=== PATIENT | male | born 1945 | race Caucasian/White ===

== ENCOUNTER 2020-02-02 09:33 | Emergency (ER) | payer MEDICARE ==
[2020-02-02 09:39] VITALS: BP 201/88; PULSE 66; TEMP 97.8
[2020-02-02] MEDS ORDERED: DIPH,PERTUS(ACELL)TETVAC-LF 0.5 ML VIAL IM ONE (09:58)
--- NOTE | 2020-02-02 10:00 | ED ---
General Adult HPI - General Chief complaint: Fall Stated complaint: Fall Time Seen by Provider: 02/02/20 09:46 Source: patient Mode of arrival: wheelchair Limitations: no limitations - History of Present Illness Initial comments: Dictation was produced using [employer] dictation software. please excuse any grammatical, word or spelling errors. This patient was cared for during a federal and state declared state of emergency secondary to Covid 19 Chief Complaint: 74-year-old male presents after fall. History of Present Illness: She 74-year-old male in the lip prior to coming to the emergency department patient fell. He was on the ladder. His head was at the level of 8 feet when he lost his balance. He fell landing head first. P atient complains of head pain and neck pain. Patient denies any arm pain, chest pain lower extremity pain or abdominal pain or back pain The ROS documented in this emergency department record has been reviewed and confirmed by me. Those systems with pertinent positive or negative responses have been documented in the HPI. All other systems are other negative and/or noncontributory. PHYSICAL EXAM: General Impression: Alert and oriented x3, not in acute distress HEENT: Abrasion to the vertex of the head extra-ocular movements intact, pupils equal and reactive to light bilaterally, mucous membranes moist, mild lower cervical spinal tenderness to palpation Cardiovascular: Heart regular rate and rhythm Chest: Able to complete full sentences, no retractions, no tachypnea Abdomen: abdomen soft, non-tender, non-distended, no organomegaly Musculoskeletal: Pulses present and equal in all extremities, no peripheral edema Motor: no focal deficits noted Neurological: CN II-XII grossly intact, no focal motor or sensory deficits noted Skin: Intact with no visualized rashes, superficial abrasion to the anterior tibial area Psych: Normal affect and mood ED course: 74-year-old male presents after fall from ladder. Patient playing of head and neck pain. He does have an abrasion to the top of his head. Tetanus is updated. Computed tomography scan of the chest and head and C-spine is unremarkable. There does however appear to be significant arthritis. No acute processes are identified. C-collar was removed. Patient states that he still can't feel stiff however a lot better once the c-collar is off. No lacerations to re- repaired at this time. Patient given bacitracin for the abrasions on the top of his head. The temporal discussed per patient clear for discharge. EKG interpretation: Ventricular rate 64, normal sinus rhythm,. Interval 160, QRS 80, QTc 447. No ND prolongation, no QTC prolongation, T-wave inversion in 3 and aVF.. No old EKG for comparison Overall, this EKG is unremarkable - Related Data Home Medications Medication Instructions Recorded Confirmed Atorvastatin [Lipitor] 20 mg PO HS 08/24/15 02/02/20 Cholecalciferol [Vitamin D3] 5,000 unit PO DAILY 08/24/15 02/02/20 Glimepiride [Amaryl] 2 mg PO BID 08/24/15 02/02/20 Losartan [Cozaar] 50 mg PO QAM 08/24/15 02/02/20 Albizia Supplement 2 - 3 cap PO DAILY PRN 02/02/20 02/02/20 Bio Cmp Supplement 1 tab PO HS 02/02/20 02/02/20 DULoxetine HCL [Cymbalta] 30 mg PO HS 02/02/20 02/02/20 Famotidine 40 mg PO HS 02/02/20 02/02/20 metFORMIN HCL 500 mg PO BID 02/02/20 02/02/20 sitaGLIPtin PHOSPHATE [Januvia] 100 mg PO DAILY 02/02/20 02/02/20 Allergies Allergy/AdvReac Type Severity Reaction Status Date / Time codeine Allergy Unknown Verified 02/02/20 10:53 Penicillins Allergy Swelling, Verified 02/02/20 10:53 REDNESS TINCTURE OF BENZOIN Allergy BLISTERS Uncoded 02/02/20 09:39 AND RASH Review of Systems ROS Statement: Those systems with pertinent positive or pertinent negative responses have been documented in the HPI. ROS Other: All systems not noted in ROS Statement are negative. Past Medical History Past Medical History: Diabetes Mellitus, GERD/Reflux Additional Past Medical History / Comment(s): EXTENSIVE HEART BURN WITH A COUGH,HAVING SLEEP STUDY DONE History of Any Multi-Drug Resistant Organisms: None Reported Past Surgical History: Joint Replacement, Orthopedic Surgery Additional Past Surgical History / Comment(s): LT TOT KNEE X 2,RT TOT KNEE,MALATHI SHOULDER, MELANOMA REMOVED RT ANKLE Past Anesthesia/Blood Transfusion Reactions: No Reported Reaction Smoking Status: Never smoker Past Alcohol Use History: None Reported Past Drug Use History: None Reported - Past Family History Father Family Medical History: Coronary Artery Disease (CAD) Additional Family Medical History / Comment(s): CABG Mother Family Medical History: No Reported History Additional Family Medical History / Comment(s): ALIVE AT 88 General Exam Limitations: no limitations Course Vital Signs 02/02/20 02/02/20 02/02/20 09:35 09:38 10:38 Temperature 97.8 F Pulse Rate 66 Respiratory 18 20 20 Rate Blood Pressure 201/88 O2 Sat by Pulse 97 Oximetry 02/02/20 11:38 Temperature Pulse Rate Respiratory 20 Rate Blood Pressure O2 Sat by Pulse Oximetry Medical Decision Making - Lab Data Result diagrams: 02/02/20 11:05 02/02/20 11:05 Lab Results 02/02/20 02/02/20 02/02/20 Range/Units 11:05 11:05 11:05 WBC 19.5 H (3.8-10.6) k/uL RBC 4.91 (4.30-5.90) m/uL Hgb 14.6 (13.0-17.5) gm/dL Hct 44.8 (39.0-53.0) % MCV 91.2 (80.0-100.0) fL MCH 29.7 (25.0-35.0) pg MCHC 32.6 (31.0-37.0) g/dL RDW 13.2 (11.5-15.5) % Plt Count 253 (150-450) k/uL Neutrophils % 91 % Lymphocytes % 4 % Monocytes % 4 % Eosinophils % 1 % Basophils % 0 % Neutrophils # 17.9 H (1.3-7.7) k/uL Lymphocytes # 0.7 L (1.0-4.8) k/uL Monocytes # 0.7 (0-1.0) k/uL Eosinophils # 0.1 (0-0.7) k/uL Basophils # 0.0 (0-0.2) k/uL PT 10.4 (9.0-12.0) sec INR 1.0 (<1.2) APTT 25.6 (22.0-30.0) sec Sodium 137 (137-145) mmol/L Potassium 4.5 (3.5-5.1) mmol/L Chloride 104 (98-107) mmol/L Carbon Dioxide 24 (22-30) mmol/L Anion Gap 9 mmol/L BUN 21 H (9-20) mg/dL Creatinine 0.82 (0.66-1.25) mg/dL Est GFR (CKD-EPI)AfAm >90 (>60 ml/min/1.73 sqM) Est GFR (CKD-EPI)NonAf 88 (>60 ml/min/1.73 sqM) Glucose 262 H (74-99) mg/dL Calcium 9.2 (8.4-10.2) mg/dL Disposition Clinical Impression: Fall, Neck strain, Head contusion Disposition: HOME SELF-CARE Condition: Fair Instructions (If sedation given, give patient instructions): Fall Prevention for Older Adults (ED) Is patient prescribed a controlled substance at d/c from ED?: No Referrals: Nisa Allan DO [Primary Care Provider] - 1-2 days Time of Disposition: 13:19
--- NOTE | 2020-02-02 10:56 | CT ---
EXAMINATION TYPE: CT brain mora rodriguez con DATE OF EXAM: 02/02/2020 COMPARISON: None HISTORY: Fall from ladder CT DLP: 1474.[address] of the brain was performed. The ventricles, basal cisterns and sulci overlying the cerebral convexities demonstrate mild enlargem ent. There is no evidence for intracranial hemorrhage or sulcal effacement. There is decreased attenuatio n about the periventricular white matter and deep white matter of both cerebral hemispheres, compatib le with chronic small vessel ischemia. No mass effects are seen. If symptoms persist consider MRI. Osseous calvarium is intact. IMPRESSION: 1. Age related atrophic and chronic small vessel ischemic change without acute intracranial process seen at this time. CT Cervical Spine: Unenhanced CT of the cervical spine was performed with bone and soft tissue window settings submitted . Coronal and sagittal reconstruction is obtained. There is normal alignment and prevertebral soft tissues. No evidence for acute cervical fracture . Se cely degenerative disc disease and spondylosis. Biapical scarring. IMPRESSION: 1. No evidence for acute fracture or subluxation of the cervical spine.
[2020-02-02 11:16] LABS: Basophils % (A) 0 %; Eosinophils # (A) 0.1 k/uL (0-0.7); Eosinophils % (A) 1 %; HCT 44.8 % (39.0-53.0); HGB 14.6 gm/dL (13.0-17.5); Lymphocytes # (A) 0.7 k/uL (1.0-4.8); Lymphocytes % (A) 4 %; MCH 29.7 pg (25.0-35.0); MCHC 32.6 g/dL (31.0-37.0); MCV 91.2 fL (80.0-100.0); Mean Platelet Volume 7.3; Monocytes # (A) 0.7 k/uL (0-1.0); Monocytes % (A) 4 %; Neutrophils # (A) 17.9 k/uL (1.3-7.7); Neutrophils % (A) 91 %; Platelet Count 253 k/uL (150-450); RBC 4.91 m/uL (4.30-5.90); RDW 13.2 % (11.5-15.5); WBC 19.5 k/uL (3.8-10.6)
[2020-02-02 11:30] LABS: African American GFR (CKD) >90 (>60 ml/min/1.73 sqM); Anion Gap 9 mmol/L; Blood Urea Nitrogen 21 mg/dL (9-20); Calcium 9.2 mg/dL (8.4-10.2); Carbon Dioxide 24 mmol/L (22-30); Chloride 104 mmol/L (98-107); Glucose 262 mg/dL (74-99); Non-African American GFR(CKD) 88 (>60 ml/min/1.73 sqM); Potassium 4.5 mmol/L (3.5-5.1); Sodium 137 mmol/L (137-145)
[2020-02-02 11:40] LABS: Partial Thromboplastin Time 25.6 sec (22.0-30.0); Prothrombin Time 10.4 sec (9.0-12.0)
[2020-02-02 12:14] VITALS: RESP 20
--- NOTE | 2020-02-02 12:22 | CT ---
EXAMINATION TYPE: CT chest wo con DATE OF EXAM: 02/02/2020 COMPARISON: None HISTORY: Fall from ladder CT DLP: 568.[address] of the chest was performed with lung and mediastinal window settings submitted. The la ck of contrast limits evaluation of the vascular, mediastinal and parenchymal structures including th e upper abdomen. LUNGS: The lungs are clear and free of infiltrate. No atelectasis. No pulmonary nodule or mass is de tected. No pleural effusion. No CT evidence of interstitial lung disease. MEDIASTINUM/DELL: Thoracic aorta is of normal caliber with limited evaluation given lack of contrast . The heart is not enlarged. No evidence for mediastinal mass. No lymph nodes greater than 1cm. UPPER ABDOMEN: No significant abnormality is seen. OTHER: No significant other abnormality. IMPRESSION: 1. No acute traumatic injury to the chest is visualized.
== END 2020-02-02 13:36 | disposition home or self-care (01) ==
LOC: EC 09:33
DX: S16.1XXA Strain of muscle, fascia and tendon at neck level, initial encounter (principal); S00.83XA Contusion of other part of head, initial encounter; R94.31 Abnormal electrocardiogram [ECG] [EKG]; Z23 Encounter for immunization; E11.9 Type 2 diabetes mellitus without complications; K21.9 Gastro-esophageal reflux disease without esophagitis; Z79.84 Long term (current) use of oral hypoglycemic drugs; Z79.899 Other long term (current) drug therapy; Z88.0 Allergy status to penicillin; Z88.5 Allergy status to narcotic agent; Z88.3 Allergy status to other anti-infective agents; Z85.820 Personal history of malignant melanoma of skin; Z98.890 Other specified postprocedural states; W11.XXXA Fall on and from ladder, initial encounter; Y92.89 Other specified places as the place of occurrence of the external cause
CPT/HCPCS: 36415; 70450; 71250; 72125; 80048; 85025; 85610; 85730; 90471; 90715; 93005; 99284

== ENCOUNTER → 2020-03-15 | Outpatient (CLI) | payer MEDICARE ==
--- NOTE | 2020-03-15 15:52 | CT ---
EXAMINATION TYPE: CT cervical spine wo con DATE OF EXAM: 03/15/2020 COMPARISON: 02/02/2020 HISTORY: 74-year-old male S12.9XX, Compression Fx TECHNIQUE: Contiguous axial scanning of the cervical spine without IV contrast. Coronal and sagittal reconstructions performed. CT DLP: 558.1 mGycm Automated exposure control for dose reduction was used. FINDINGS: Compared to 02/02/2020, there is slightly greater kyphosis at the C6-C7 level. There is anterior step-o ff involving bulky dish at this level and possible subtle fracture lucencies extending back across th e pars interarticularis regions on both sides, refer to sagittal images 63, 68, and 56. No significan t prevertebral soft tissue thickening at this level. Bulky DISH is present throughout. Posterior disc osteophyte complexes result in diffuse mild spinal canal stenoses throughout. Suspect posterior disc bulge at C3-C4 further narrowing the spinal canal at this level. Multilevel uncovertebral joint and facet arthropathy. Moderate bilateral neuroforaminal stenoses thro ughout. IMPRESSION: BULKY CHANGES OF DISH. THERE IS SLIGHT KYPHOSIS AT THE C6-C7 LEVEL COMPARED TO 02/02/2020 AND AN ANT ERIOR CORTICAL STEP-OFF ALONG THE BRIDGING BONE AT THIS LEVEL. GIVEN LINEAR LUCENCY EXTENDING BACK AC ROSS THE C7 PARS INTERARTICULARIS REGIONS ON BOTH SIDES, A TRANSVERSE FRACTURE ACROSS THIS LEVEL IS N OT EXCLUDED. A MORE SUBACUTE OR CHRONIC INJURY IS FAVORED GIVEN THE LACK OF PREVERTEBRAL SOFT TISSUE SWELLING HERE. THERE ALSO APPEAR TO BE AREAS OF PARTIAL BONY BRIDGING. CLINICALLY CORRELATE.
== END | disposition home or self-care (01) ==
LOC: RADCTMAIN 15:03
PROVIDERS: ATTEND Physical Medicine & Rehabilitation
DX: M40.292 Other kyphosis, cervical region (principal); Z98.890 Other specified postprocedural states
CPT/HCPCS: 72125

== ENCOUNTER → 2020-05-04 | Outpatient (CLI) | payer MEDICARE ==
--- NOTE | 2020-05-04 08:48 | CT ---
EXAMINATION TYPE: CT cervical spine wo con DATE OF EXAM: 05/04/2020 COMPARISON: CT cervical spine March 15, 2020 and February 02, 2020 HISTORY: Non displaced cervical fracture C2 CT DLP: 612.9 mGycm. Automated Exposure Control for Dose Reduction was Utilized. TECHNIQUE: CT scan of the cervical spine is obtained without contrast, axial images are obtained, sa gittal and coronal reformatted images are also reviewed. FINDINGS: Cervical spine is visualized in its entirety from C1 through upper thoracic levels, we demo nstrates loss of normal cervical curvature without evidence of new acute fracture or dislocation. Pr evertebral soft tissue remains within normal limits. The C1-C2 articulation remains within normal li mits on the coronal images. Vertebral body heights are preserved. Moderate multilevel disc space narr owing C4-C5 through C6-C7 levels redemonstrated. Large bridging anterior osteophytes in the cervical spine again seen. There is suspected healing fracture through the large osteophytes anterior C6 level . Reference sagittal image 30 with less visualized but persistent linear lucency. Posterior spurring effaces anterior thecal sac at C6-C7 level similar to prior. Posterior disc herniation effacing the a nterior thecal sac at C3-C4 level sagittal image 30 similar to prior. Persistent mild height loss and anterior superior C7 vertebra. Review of axial images shows multilevel uncovertebral and facet degenerative changes contributing to eajy-me-eumakvey bilateral neural foraminal narrowing at C3-C4 level and vjyk-[id number]-acdusymi neural fora talat narrowing at right C5-C6 level. Posterior marginal spurring causes mild bilateral neural forami nal narrowing at C6-C7 level. Thyroid gland remains normal in size. Lung apices show no pneumothorax. Mild calcified plaque left greater than right carotid bulb is redemonstrated. IMPRESSION: Healing fracture through anterior osteophyte C6 level is felt present. No new acute fract ure. Underlying DISH redemonstrated. Other findings as noted above without significant interval christie mae
== END | disposition home or self-care (01) ==
LOC: RADCTMAIN 08:13
DX: M48.02 Spinal stenosis, cervical region (principal); M99.71 Connective tissue and disc stenosis of intervertebral foramina of cervical region; M50.21 Other cervical disc displacement, high cervical region; M47.812 Spondylosis without myelopathy or radiculopathy, cervical region; M48.12 Ankylosing hyperostosis [Forestier], cervical region; I65.21 Occlusion and stenosis of right carotid artery
CPT/HCPCS: 72125

== ENCOUNTER 2021-05-16 20:35 | Inpatient (IN) | payer MEDICARE ==
[2021-05-16] MEDS ORDERED: HYDROmorphone 0.5 MG/0.5 ML SYRINGE IVP STA (23:24)
[2021-05-16] MEDS ORDERED: ONDANSETRON 4 MG/2 ML VIAL IVP STA (23:24)
[2021-05-16] MEDS ORDERED: SODIUM CHLORIDE 0.9% 1,000 ML IV STA (23:24)
[2021-05-17 00:36] LABS: Basophils % (A) 0 %; Eosinophils % (A) 0 %; HCT 47.4 % (39.0-53.0); HGB 16.1 gm/dL (13.0-17.5); Lymphocytes # (A) 0.7 k/uL (1.0-4.8); Lymphocytes % (A) 4 %; MCH 31.5 pg (25.0-35.0); MCV 92.6 fL (80.0-100.0); Mean Platelet Volume 7.8; Monocytes # (A) 0.6 k/uL (0-1.0); Monocytes % (A) 3 %; Neutrophils # (A) 18.6 k/uL (1.3-7.7); Neutrophils % (A) 93 %; Platelet Count 296 k/uL (150-450); RBC 5.12 m/uL (4.30-5.90); RDW 12.8 % (11.5-15.5); WBC 19.9 k/uL (3.8-10.6)
[2021-05-17 00:46] LABS: Albumin 4.2 g/dL (3.5-5.0); Calcium 9.5 mg/dL (8.4-10.2); Potassium 4.8 mmol/L (3.5-5.1); Total Bilirubin 1.5 mg/dL (0.2-1.3); Total Protein 6.9 g/dL (6.3-8.2)
[2021-05-17 01:11] LABS: Partial Thromboplastin Time 25.9 sec (22.0-30.0)
--- NOTE | 2021-05-17 01:21 | CT ---
EXAMINATION TYPE: CT abdomen pelvis w con DATE OF EXAM: 05/17/2021 COMPARISON: None HISTORY: pain, vomitting, diarrhea CT DLP: 1107.4 mGycm Automated exposure control for dose reduction was used. CONTRAST: Performed with IV Contrast, patient injected with 100ml mL of Isovue 300. Images obtained from the diaphragm to the floor the pelvis with IV contrast. Lung bases are clear of consolidation. There is no pleural effusion. Heart size is normal. Liver spleen stomach pancreas gallbladder appear normal. Bile ducts are nondilated. There is no adrenal mass. Kidneys show satisfactory contrast opacification. There is no hydronephrosi s. Delayed images show normal renal excretion. There are multiple small bilateral renal parapelvic cy sts. Ureters are not dilated. There is no retroperitoneal adenopathy. Bladder distends smoothly. Ther e is no inguinal hernia. There are multiple sigmoid diverticula. There is some diffuse wall thickening of the transverse colon and the proximal descending colon. Ther e is some mild surrounding fat stranding. There is no free air. There is no ascites. There is no sign of a bowel obstruction. Lumbar vertebra have normal alignment. Posterior elements are intact. There is no compression fractur e. There is multilevel degenerative spur formation. Appendix is small and appears normal. IMPRESSION: Diffuse thickening of the wall of the transverse colon and proximal descending colon is consistent wi th some nonspecific colitis. There is sigmoid diverticulosis without diverticulitis.
[2021-05-17] MEDS ORDERED: metroNIDAZOLE-NS PMX 500 MG in SALINE 1 100ML.BAG IVPB STA (02:44)
[2021-05-17] MEDS ORDERED: LEVOFLOXACIN 750MG-D5W PMX 750 MG in DEXTROSE/WATER 1 150ML.BAG IVPB STA (02:44)
[2021-05-17] MEDS ORDERED: NALOXONE 0.4 MG/ML 1 ML VIAL IV PRN (02:45)
[2021-05-17] MEDS ORDERED: LEVOFLOXACIN 750MG-D5W PMX 750 MG in DEXTROSE/WATER 1 150ML.BAG IVPB SCH (02:45)
--- NOTE | 2021-05-17 02:47 | ED ---
Abdominal Pain HPI - General Chief Complaint: Abdominal Pain Stated Complaint: Abd pain,vomiting Time Seen by Provider: 05/16/21 22:59 Source: patient Mode of arrival: wheelchair - History of Present Illness Initial Comments: 75 year-old male patient presents to the emergency department for evaluation of lower abdominal pain. Patient states it started at 0200 in the morning and has been persistent all day. He reports several episodes of bloody diarrhea. He reports nausea and an episode of vomiting. He denies any fever or chills. He did have umbilical hernia repair, no other abdominal surgeries. He denies history of similar symptoms. Denies use of blood thinners. Does have hemorrhoids. Patient denies any recent rash, cough, shortness of breath, chest pain, back pain, num bness, tingling, dizziness, weakness, hematuria, dysuria, urinary urgency, urinary frequency, headache, visual changes, or any other complaints. - Related Data Home Medications Medication Instructions Recorded Confirmed Atorvastatin [Lipitor] 20 mg PO HS 08/24/15 02/02/20 Cholecalciferol [Vitamin D3] 5,000 unit PO DAILY 08/24/15 02/02/20 Glimepiride [Amaryl] 2 mg PO BID 08/24/15 02/02/20 Losartan [Cozaar] 50 mg PO QAM 08/24/15 02/02/20 Albizia Supplement 2 - 3 cap PO DAILY PRN 02/02/20 02/02/20 Bio Cmp Supplement 1 tab PO HS 02/02/20 02/02/20 DULoxetine HCL [Cymbalta] 30 mg PO HS 02/02/20 02/02/20 Famotidine 40 mg PO HS 02/02/20 02/02/20 metFORMIN HCL 500 mg PO BID 02/02/20 02/02/20 sitaGLIPtin PHOSPHATE [Januvia] 100 mg PO DAILY 02/02/20 02/02/20 Allergies Allergy/AdvReac Type Severity Reaction Status Date / Time codeine Allergy Unknown Verified 05/16/21 22:16 Penicillins Allergy Swelling, Verified 05/16/21 22:16 REDNESS TINCTURE OF BENZOIN Allergy BLISTERS Uncoded 05/16/21 22:16 AND RASH Review of Systems ROS Statement: Those systems with pertinent positive or pertinent negative responses have been documented in the HPI. ROS Other: All systems not noted in ROS Statement are negative. Past Medical History Past Medical History: Diabetes Mellitus, GERD/Reflux Additional Past Medical History / Comment(s): EXTENSIVE HEART BURN WITH A COUG H,HAVING SLEEP STUDY DONE History of Any Multi-Drug Resistant Organisms: None Reported Past Surgical History: Joint Replacement, Orthopedic Surgery Additional Past Surgical History / Comment(s): LT TOT KNEE X 2,RT TOT KNEE,MALATHI SHOULDER, MELANOMA REMOVED RT ANKLE Past Anesthesia/Blood Transfusion Reactions: No Reported Reaction Past Psychological History: No Psychological Hx Reported Smoking Status: Never smoker Past Alcohol Use History: None Reported Past Drug Use History: None Reported - Past Family History Father Family Medical History: Coronary Artery Disease (CAD) Additional Family Medical History / Comment(s): CABG Mother Family Medical History: No Reported History Additional Family Medical History / Comment(s): ALIVE AT 88 General Exam General appearance: alert, in no apparent distress, other (This is a well developed, well nourished adult male patient in mild distress related to pain. Vital signs upon presentation are temperature 98.3F, pulse 98, respirations 18, blood pressure 168/90, pulse ox 98% on room air.) ENT exam: Present: normal exam, normal oropharynx, mucous membranes moist Respiratory exam: Present: normal lung sounds bilaterally. Absent: respiratory distress, wheezes, rales, rhonchi, stridor Cardiovascular Exam: Present: regular rate, normal rhythm, normal heart sounds. Absent: systolic murmur, diastolic murmur, rubs, gallop, clicks GI/Abdominal exam: Present: soft, tenderness (lower abd; periumbilical), normal bowel sounds. Absent: distended, guarding, rebound, rigid Neurological exam: Present: alert, oriented X3, CN II-XII intact Psychiatric exam: Present: normal affect, normal mood Skin exam: Present: warm, dry, intact, normal color. Absent: rash Course Vital Signs 05/16/21 05/16/21 05/17/21 22:12 23:45 01:30 Temperature 98.3 F Pulse Rate 98 92 96 Respiratory 18 20 18 Rate Blood Pressure 168/90 167/86 160/84 O2 Sat by Pulse 98 95 94 L Oximetry 05/17/21 05/17/21 05/17/21 02:51 04:00 05:26 Temperature Pulse Rate 92 88 86 Respiratory 20 18 22 Rate Blood Pressure 171/83 160/72 159/71 O2 Sat by Pulse 94 L 94 L 95 Oximetry Medical Decision Making - Medical Decision Making 75-year-old male patient presenting to the emergency department today for evaluation of lower abdominal pain, diarrhea, vomiting. Physical examination did reveal lower abdominal tenderness, periumbilical tenderness. Labs reviewed and did reveal elevated white blood cell count of 19.9 with neutrophils at 18.6. BUN is 29. Glucose 294. Plasma lactic acid 2.8. Total bili 1.5. He also did test positive for COVID. CT abdomen and pelvis did show nonspecific colitis with inflammatory changes involving the proximal descending and transverse colon. He'll be admitted to the hospital with IV antibiotics, IV fluids, pain medication. He is agreeable this plan. Case discussed with my attending Dr. Singh. - Lab Data Result diagrams: 05/16/21 23:45 05/16/21 23:45 Lab Results 05/16/21 05/16/21 05/16/21 Range/Units 23:45 23:45 23:45 WBC 19.9 H (3.8-10.6) k/uL RBC 5.12 (4.30-5.90) m/uL Hgb 16.1 (13.0-17.5) gm/dL Hct 47.4 (39.0-53.0) % MCV 92.6 (80.0-100.0) fL MCH 31.5 (25.0-35.0) pg MCHC 34.0 (31.0-37.0) g/dL RDW 12.8 (11.5-15.5) % Plt Count 296 (150-450) k/uL MPV 7.8 Neutrophils % 93 % Lymphocytes % 4 % Monocytes % 3 % Eosinophils % 0 % Basophils % 0 % Neutrophils # 18.6 H (1.3-7.7) k/uL Lymphocytes # 0.7 L (1.0-4.8) k/uL Monocytes # 0.6 (0-1.0) k/uL Eosinophils # 0.0 (0-0.7) k/uL Basophils # 0.0 (0-0.2) k/uL PT 11.0 (9.0-12.0) sec INR 1.0 (<1.2) APTT 25.9 (22.0-30.0) sec Sodium 139 (137-145) mmol/L Potassium 4.8 (3.5-5.1) mmol/L Chloride 99 (98-107) mmol/L Carbon Dioxide 27 (22-30) mmol/L Anion Gap 13 mmol/L BUN 29 H (9-20) mg/dL Creatinine 1.02 (0.66-1.25) mg/dL Est GFR (CKD-EPI)AfAm 84 (>60 ml/min/1.73 sqM) Est GFR (CKD-EPI)NonAf 72 (>60 ml/min/1.73 sqM) Glucose 294 H (74-99) mg/dL Lactic Ac Sepsis Rflx Plasma Lactic Acid Case (0.7-2.0) mmol/L Calcium 9.5 (8.4-10.2) mg/dL Total Bilirubin 1.5 H (0.2-1.3) mg/dL AST 31 (17-59) U/L ALT 31 (4-49) U/L Alkaline Phosphatase 137 H (38-126) U/L Total Protein 6.9 (6.3-8.2) g/dL Albumin 4.2 (3.5-5.0) g/dL Lipase 40 (23-300) U/L Coronavirus (PCR) (Not Detectd) 05/16/21 05/17/21 05/17/21 Range/Units 23:45 01:11 01:32 WBC (3.8-10.6) k/uL RBC (4.30-5.90) m/uL Hgb (13.0-17.5) gm/dL Hct (39.0-53.0) % MCV (80.0-100.0) fL MCH (25.0-35.0) pg MCHC (31.0-37.0) g/dL RDW (11.5-15.5) % Plt Count (150-450) k/uL MPV Neutrophils % % Lymphocytes % % Monocytes % % Eosinophils % % Basophils % % Neutrophils # (1.3-7.7) k/uL Lymphocytes # (1.0-4.8) k/uL Monocytes # (0-1.0) k/uL Eosinophils # (0-0.7) k/uL Basophils # (0-0.2) k/uL PT (9.0-12.0) sec INR (<1.2) APTT (22.0-30.0) sec Sodium (137-145) mmol/L Potassium (3.5-5.1) mmol/L Chloride (98-107) mmol/L Carbon Dioxide (22-30) mmol/L Anion Gap mmol/L BUN (9-20) mg/dL Creatinine (0.66-1.25) mg/dL Est GFR (CKD-EPI)AfAm (>60 ml/min/1.73 sqM) Est GFR (CKD-EPI)NonAf (>60 ml/min/1.73 sqM) Glucose (74-99) mg/dL Lactic Ac Sepsis Rflx Y Plasma Lactic Acid Case 2.8 H* (0.7-2.0) mmol/L Calcium (8.4-10.2) mg/dL Total Bilirubin (0.2-1.3) mg/dL AST (17-59) U/L ALT (4-49) U/L Alkaline Phosphatase (38-126) U/L Total Protein (6.3-8.2) g/dL Albumin (3.5-5.0) g/dL Lipase (23-300) U/L Coronavirus (PCR) Detected A (Not Detectd) 05/17/21 Range/Units 04:12 WBC (3.8-10.6) k/uL RBC (4.30-5.90) m/uL Hgb (13.0-17.5) gm/dL Hct (39.0-53.0) % MCV (80.0-100.0) fL MCH (25.0-35.0) pg MCHC (31.0-37.0) g/dL RDW (11.5-15.5) % Plt Count (150-450) k/uL MPV Neutrophils % % Lymphocytes % % Monocytes % % Eosinophils % % Basophils % % Neutrophils # (1.3-7.7) k/uL Lymphocytes # (1.0-4.8) k/uL Monocytes # (0-1.0) k/uL Eosinophils # (0-0.7) k/uL Basophils # (0-0.2) k/uL PT (9.0-12.0) sec INR (<1.2) APTT (22.0-30.0) sec Sodium (137-145) mmol/L Potassium (3.5-5.1) mmol/L Chloride (98-107) mmol/L Carbon Dioxide (22-30) mmol/L Anion Gap mmol/L BUN (9-20) mg/dL Creatinine (0.66-1.25) mg/dL Est GFR (CKD-EPI)AfAm (>60 ml/min/1.73 sqM) Est GFR (CKD-EPI)NonAf (>60 ml/min/1.73 sqM) Glucose (74-99) mg/dL Lactic Ac Sepsis Rflx Plasma Lactic Acid Case 1.4 (0.7-2.0) mmol/L Calcium (8.4-10.2) mg/dL Total Bilirubin (0.2-1.3) mg/dL AST (17-59) U/L ALT (4-49) U/L Alkaline Phosphatase (38-126) U/L Total Protein (6.3-8.2) g/dL Albumin (3.5-5.0) g/dL Lipase (23-300) U/L Coronavirus (PCR) (Not Detectd) - Radiology Data Radiology results: report reviewed, image reviewed CT abdomen and pelvis is obtained with contrast. Report was reviewed in its entirety. Impression by Dr. Wright shows diffuse thickening of the wall the transverse colon and proximal descending colon is consistent with some nonspecific colitis. There is sigmoid diverticulosis without diverticulitis. Disposition Clinical Impression: Colitis, Sepsis, COVID-19 Disposition: ADMITTED IP TO THIS [facility] Condition: Serious Decision to Admit Reason: Admit from EC Decision Date: 05/17/21 Decision Time: 02:47
[2021-05-17] MEDS: HYDROmorphone 0.5 MG/0.5 ML SYRINGE IVP PRN ×2 (03:16→10:23)
[2021-05-17] MEDS: SODIUM CHLORIDE 0.9% 1,000 ML IV SCH ×2 (03:17→16:42)
[2021-05-17 06:55] LABS: Appearance,Urine Clear (Clear); Bilirubin,Urine Negative (Negative); Blood,Urine Negative (Negative); Color,Urine Yellow; Glucose,Urine (UA) 4+ (Negative); Leukocyte Esterase,Urine Negative (Negative); Nitrite,Urine Negative (Negative); PH, Urine 5.5 (5.0-8.0); Protein,Urine Trace (Negative); Urobilinogen,Urine <2.0 mg/dL (<2.0)
[2021-05-17 06:56] LABS: Specific Gravity,Urine >1.050 (1.001-1.035)
[2021-05-17 07:01] LABS: Ketones,Urine 2+ (Negative)
[2021-05-17] MEDS: ASCORBIC ACID 500 MG TAB PO SCH (10:21)
[2021-05-17] MEDS: ENOXAPARIN 40 MG/0.4 ML SYRINGE SQ SCH (10:22)
[2021-05-17] MEDS: DEXAMETHASONE SOD PHOSPHATE 10 MG/ML 1 ML VIAL IV SCH (10:24)
[2021-05-17] MEDS: metroNIDAZOLE-NS PMX 500 MG in SALINE 1 100ML.BAG IVPB SCH ×2 (13:27→18:32)
--- NOTE | 2021-05-17 15:11 | P.GSCN ---
History of Present Illness Consult date: 05/17/21 History of present illness: CHIEF COMPLAINT: Bloody diarrhea and abdominal pain HISTORY OF PRESENT ILLNESS: This is a 75-year-old male who presented to the emergency room with complaints of lower abdominal pain and bloody diarrhea. He reports that he's been having lower abdominal discomfort for about 2 weeks. He started having bloody diarrhea yesterday. He's had multiple stools with bright red blood. He's been having nausea and a couple episodes of vomiting. He also reports having chills. He denies any recent traveling or eating any contaminated food. Denies any past history of colitis and denies any family history of colitis. He had a elevated with white count of 19.9 on admission and elevated lactic acid level. Computed tomography scan of abdomen and pelvis had shown diffuse thickening of the wall of the transverse colon and proximal descending colon consistent with nonspecific colitis. There is sigmoid diverticulosis without diverticulitis. His last colonoscopy was in 2016 at that time had shown diverticulosis. Patient is Covid positive. He did receive his 2 vaccines. PAST MEDICAL HISTORY: EGD and colonoscopy 2016 showing gastritis, esophagitis, hiatal hernia and diverticulosis Diabetes mellitus and GERD PAST SURGICAL HISTORY: Umbilical hernia repair MEDICATIONS: See list. ALLERGIES: See list. SOCIAL HISTORY: No illicit drug use. REVIEW OF SYSTEMS: CONSTITUTIONAL: Denies fever or chills. HEENT: Denies blurred vision, vision changes, or eye pain. Denies hemoptysis CARDIOVASCULAR: Denies chest pain or pressure. RESPIRATORY: No shortness of breath. GASTROINTESTINAL: See HPI for pertinent findings HEMATOLOGIC: Denies bleeding disorders. GENITOURINARY: Denies any blood in urine or increased urinary frequency. SKIN: Denies pruitis. Denies rash. PHYSICAL EXAM: VITAL SIGNS: Reviewed GENERAL: Well-developed in no acute distress. HEENT: No sclera icterus. Extraocular movements grossly intact. Moist buccal m [place]. Head is atraumatic, normocephalic. No nasal drainage. ABDOMEN: Soft. Nondistended. Lower abdominal tenderness with palpation NEUROLOGIC: Alert and oriented. Cranial nerves II through XII grossly intact. LABORATORY DATA: WBC 19.9 hemoglobin 16.1 platelets 296 INR 1.0 Sodium 139 potassium 4.8 BUN 29 creatinine 1.02 Lactic acid 2.8 down to 1.4 Alk phos 137 total bilirubin 1.5 AST and ALT normal lipase normal C. diff negative Covid 19 detected IMAGING: Computed tomography scan of abdomen and pelvis had shown diffuse thickening of the wall of the transverse colon and proximal descending colon consistent with nonspecific colitis. There is sigmoid diverticulosis without diverticulitis. ASSESSMENT: 1. Abdominal pain with bloody diarrhea likely secondary to colitis 2. COVID-19 positive PLAN: -Continue antibiotics -Continue IV fluids -Start patient on full liquid diet -Plan for colonoscopy on 05/20/[address] montes Thank you for this consultation Physician [employer] Professor note has been reviewed by physician. Signing provider agrees with the documented findings, assessment, and plan of care. Past Medical History Past Medical History: Diabetes Mellitus, GERD/Reflux Additional Past Medical History / Comment(s): EXTENSIVE HEART BURN WITH A COUGH,HAVING SLEEP STUDY DONE History of Any Multi-Drug Resistant Organisms: None Reported Past Surgical History: Joint Replacement, Orthopedic Surgery Additional Past Surgical History / Comment(s): LT TOT KNEE X 2,RT TOT KNEE,MALATHI SHOULDER, MELANOMA REMOVED RT ANKLE Past Anesthesia/Blood Transfusion Reactions: No Reported Reaction Past Psychological History: No Psychological Hx Reported Smoking Status: Never smoker Past Alcohol Use History: None Reported Past Drug Use History: None Reported - Past Family History Father Family Medical History: Coronary Artery Disease (CAD) Additional Family Medical History / Comment(s): CABG Mother Family Medical History: No Reported History Additional Family Medical History / Comment(s): ALIVE AT 88 Medications and Allergies Home Medications Medication Instructions Recorded Confirmed Type Losartan [Cozaar] 50 mg PO DAILY 08/24/15 05/17/21 History Famotidine 40 mg PO HS 02/02/20 05/17/21 History Atorvastatin [Lipitor] 20 mg PO HS 05/17/21 05/17/21 History Dulaglutide [Trulicity] 3 mg SQ TH 05/17/21 05/17/21 History Allergies Allergy/AdvReac Type Severity Reaction Status Date / Time codeine Allergy Unknown Verified 05/17/21 07:59 Penicillins Allergy Swelling, Verified 05/17/21 07:59 REDNESS TINCTURE OF BENZOIN AdvReac BLISTERS Uncoded 05/17/21 07:59 AND RASH Surgical - Exam Vital Signs Temp Pulse Resp BP Pulse Ox 98.3 F 98 18 168/90 98 05/16/21 22:12 05/16/21 22:12 05/16/21 22:12 05/16/21 22:12 05/16/21 22:12 Results - Labs 05/16/21 23:45 05/16/21 23:45 Abnormal Lab Results - Last 24 Hours (Table) 05/16/21 05/16/21 05/16/21 Range/Units 23:45 23:45 23:45 WBC 19.9 H (3.8-10.6) k/uL Neutrophils # 18.6 H (1.3-7.7) k/uL Lymphocytes # 0.7 L (1.0-4.8) k/uL BUN 29 H (9-20) mg/dL Glucose 294 H (74-99) mg/dL Plasma Lactic Acid Case 2.8 H* (0.7-2.0) mmol/L Total Bilirubin 1.5 H (0.2-1.3) mg/dL Alkaline Phosphatase 137 H (38-126) U/L Ur Specific [place] (1.001-1.035) Urine Protein (Negative) Urine Glucose (UA) (Negative) Urine Ketones (Negative) Coronavirus (PCR) (Not Detectd) 05/17/21 05/17/21 Range/Units 01:32 05:26 WBC (3.8-10.6) k/uL Neutrophils # (1.3-7.7) k/uL Lymphocytes # (1.0-4.8) k/uL BUN (9-20) mg/dL Glucose (74-99) mg/dL Plasma Lactic Acid Case (0.7-2.0) mmol/L Total Bilirubin (0.2-1.3) mg/dL Alkaline Phosphatase (38-126) U/L Ur Specific [place] >1.050 H (1.001-1.035) Urine Protein Trace H (Negative) Urine Glucose (UA) 4+ H (Negative) Urine Ketones 2+ H (Negative) Coronavirus (PCR) Detected A (Not Detectd) Diabetes panel 05/16/21 Range/Units 23:45 Sodium 139 (137-145) mmol/L Potassium 4.8 (3.5-5.1) mmol/L Chloride 99 (98-107) mmol/L Carbon Dioxide 27 (22-30) mmol/L BUN 29 H (9-20) mg/dL Creatinine 1.02 (0.66-1.25) mg/dL Glucose 294 H (74-99) mg/dL Calcium 9.5 (8.4-10.2) mg/dL AST 31 (17-59) U/L ALT 31 (4-49) U/L Alkaline Phosphatase 137 H (38-126) U/L Total Protein 6.9 (6.3-8.2) g/dL Albumin 4.2 (3.5-5.0) g/dL Calcium panel 05/16/21 Range/Units 23:45 Calcium 9.5 (8.4-10.2) mg/dL Albumin 4.2 (3.5-5.0) g/dL Pituitary panel 05/16/21 Range/Units 23:45 Sodium 139 (137-145) mmol/L Potassium 4.8 (3.5-5.1) mmol/L Chloride 99 (98-107) mmol/L Carbon Dioxide 27 (22-30) mmol/L BUN 29 H (9-20) mg/dL Creatinine 1.02 (0.66-1.25) mg/dL Glucose 294 H (74-99) mg/dL Calcium 9.5 (8.4-10.2) mg/dL Adrenal panel 05/16/21 Range/Units 23:45 Sodium 139 (137-145) mmol/L Potassium 4.8 (3.5-5.1) mmol/L Chloride 99 (98-107) mmol/L Carbon Dioxide 27 (22-30) mmol/L BUN 29 H (9-20) mg/dL Creatinine 1.02 (0.66-1.25) mg/dL Glucose 294 H (74-99) mg/dL Calcium 9.5 (8.4-10.2) mg/dL Total Bilirubin 1.5 H (0.2-1.3) mg/dL AST 31 (17-59) U/L ALT 31 (4-49) U/L Alkaline Phosphatase 137 H (38-126) U/L Total Protein 6.9 (6.3-8.2) g/dL Albumin 4.2 (3.5-5.0) g/dL
[2021-05-17 16:04] LABS: Basophils % (A) 0 %; Eosinophils % (A) 0 %; HCT 42.3 % (39.0-53.0); HGB 14.1 gm/dL (13.0-17.5); Lymphocytes # (A) 0.5 k/uL (1.0-4.8); Lymphocytes % (A) 3 %; MCH 31.9 pg (25.0-35.0); MCHC 33.5 g/dL (31.0-37.0); MCV 95.2 fL (80.0-100.0); Mean Platelet Volume 7.5; Monocytes # (A) 0.5 k/uL (0-1.0); Monocytes % (A) 3 %; Neutrophils # (A) 18.4 k/uL (1.3-7.7); Neutrophils % (A) 95 %; Platelet Count 244 k/uL (150-450); RBC 4.44 m/uL (4.30-5.90); RDW 13.1 % (11.5-15.5); WBC 19.4 k/uL (3.8-10.6)
[2021-05-17] MEDS ORDERED: FAMOTIDINE 20 MG TAB PO SCH (21:00)
[2021-05-17 21:05] LABS: Glucose,Whole Blood 228 mg/dL (75-99)
[2021-05-17] MEDS ORDERED: ASCORBIC ACID 500 MG TAB ONE (23:59)
[2021-05-17] MEDS ORDERED: ATORVASTATIN 20 MG TAB ONE (23:59)
[2021-05-17] MEDS ORDERED: FAMOTIDINE 20 MG TAB ONE (23:59)
[2021-05-18] MEDS: metroNIDAZOLE-NS PMX 500 MG in SALINE 1 100ML.BAG IVPB SCH ×4 (05:48→17:29)
[2021-05-18 06:47] LABS: Glucose,Whole Blood 134 mg/dL (75-99)
[2021-05-18] MEDS: ASCORBIC ACID 500 MG TAB PO SCH ×2 (06:56→07:52)
[2021-05-18] MEDS: ATORVASTATIN 20 MG TAB PO SCH (06:56)
[2021-05-18] MEDS: SODIUM CHLORIDE 0.9% 1,000 ML IV SCH ×2 (06:57→17:30)
[2021-05-18] MEDS: LEVOFLOXACIN 750MG-D5W PMX 750 MG in DEXTROSE/WATER 1 150ML.BAG IVPB SCH (06:57)
[2021-05-18] MEDS: ENOXAPARIN 40 MG/0.4 ML SYRINGE SQ SCH (07:52)
[2021-05-18] MEDS: DEXAMETHASONE SOD PHOSPHATE 10 MG/ML 1 ML VIAL IV SCH (07:52)
[2021-05-18] MEDS: LOSARTAN 50 MG TAB PO SCH (07:52)
[2021-05-18 11:38] LABS: Glucose,Whole Blood 292 mg/dL (75-99)
[2021-05-18 13:07] LABS: Basophils # (A) 0.03 X 10*3/uL (0.00-0.10); Basophils % (A) 0.1 %; Eosinophils # (A) 0.02 X 10*3/uL (0.04-0.35); Eosinophils % (A) 0.1 %; HCT 40.1 % (39.6-50.0); HGB 12.9 g/dL (13.0-17.0); MCH 29.7 pg (27.0-32.0); MCHC 32.2 g/dL (32.0-37.0); MCV 92.2 fL (80.0-97.0); Mean Platelet Volume 10.3 fL (9.5-12.2); Monocytes # (A) 1.19 X 10*3/uL (0.20-1.00); Monocytes % (A) 5.6 %; Neutrophils # (A) 18.08 X 10*3/uL (1.80-7.70); Neutrophils % (A) 85.7 %; Platelet Count 232 X 10*3/uL (140-440); RBC 4.35 X 10*6/uL (4.40-5.60); RDW 13.2 % (11.5-14.5); WBC 21.13 X 10*3/uL (4.50-10.00)
[2021-05-18 13:08] LABS: African American GFR (CKD) 88.9 (60.0-200.0); Anion Gap 12.6 mmol/L (4.00-12.00); BUN/Creat Ratio 26.63 Ratio (12.00-20.00); Blood Urea Nitrogen 25.8 mg/dL (9.0-27.0); Calcium 8.6 mg/dL (8.7-10.3); Carbon Dioxide 22.8 mmol/L (21.6-31.8); Non-African American GFR(CKD) 76.7 (60.0-200.0)
--- NOTE | 2021-05-18 14:05 | P.CNPUL ---
History of Present Illness Consult date: 05/18/21 Requesting physician: Nader Allan Chief complaint: Colitis. History of present illness: Pulmonary/critical care consult dated 05/18/2021. 75-year-old male, who presents to the emergency department on May 16, compl aining of abdominal pain. His pain is in the lower abdominal area. It started the morning of the day of the visit. He's had several episodes of bloody diarrhea, as well as nausea, and emesis. There was no fever or chills. He denies any pulmonary complaints including shortness of breath, chest tightness, cough, wheezing, or phlegm production. He also denies any chest pain or pressure. He denies any fever or chills. Apparently, he was tested for coronavirus and tested positive, and hence we were consulted. Again, the patient is not having any lung issues whatsoever. The patient does have a history of diabetes mellitus, gastroesophageal reflux disease, and multiple orthopedic procedures. He is a lifelong nonsmoker. White count 21.13, hemoglobin 12.9, hematocrit 40.1, and platelet count normal. Sodium, potassium, chloride, and CO2 are all normal. Anion gap is normal. BUN and creatinine were normal. Initial lactic acid was 2.8 and follow-up was 1.4. Liver function tests are essentially normal. Lipase was normal. Urine was essentially negative. Computed tomography scan of the abdomen and pelvis did show diffuse thickening of the wall of the transverse colon and proximal descending colon consistent with nonspecific colitis. There is also evidence of sigmoid divertic ular disease. Review of Systems REVIEW OF SYSTEMS: CONSTITUTIONAL: [Negative.] NEUROLOGIC: [ Negative.] HEENT: [ Negative.] CARDIAC: [Negative.] PULMONARY: [Negative.] GI: Abdominal pain, cramping, nausea, vomiting, and bloody diarrhea. : [Negative.] RHEUMATOLOGIC: [ Negative.] IMMUNOLOGIC: [ Negative.] ENDOCRINE: [Negative. ] DERMATOLOGIC: [Negative.] Past Medical History Past Medical History: Diabetes Mellitus, GERD/Reflux Additional Past Medical History / Comment(s): EXTENSIVE HEART BURN WITH A COUGH,HAVING SLEEP STUDY DONE History of Any Multi-Drug Resistant Organisms: None Reported Past Surgical History: Joint Replacement, Orthopedic Surgery Additional Past Surgical History / Comment(s): LT TOT KNEE X 2,RT TOT KNEE,MALATHI SHOULDER, MELANOMA REMOVED RT ANKLE Past Anesthesia/Blood Transfusion Reactions: No Reported Reaction Past Psychological History: No Psychological Hx Reported Smoking Status: Never smoker Past Alcohol Use History: None Reported Past Drug Use History: None Reported - Past Family History Father Family Medical History: Coronary Artery Disease (CAD), Myocardial Infarction (VT) Additional Family Medical History / Comment(s): CABG Mother Family Medical History: No Reported History Additional Family Medical History / Comment(s): ALIVE AT 88 Sister(s) History Unknown: Yes Additional Family Medical History / Comment(s): cancer Medications and Allergies Home Medications Medication Instructions Recorded Confirmed Type Losartan [Cozaar] 50 mg PO DAILY 08/24/15 05/17/21 History Famotidine 40 mg PO HS 02/02/20 05/17/21 History Atorvastatin [Lipitor] 20 mg PO HS 05/17/21 05/17/21 History Dulaglutide [Trulicity] 3 mg SQ TH 05/17/21 05/17/21 History Allergies Allergy/AdvReac Type Severity Reaction Status Date / Time codeine Allergy Unknown Verified 05/17/21 07:59 Penicillins Allergy Swelling, Verified 05/17/21 07:59 REDNESS TINCTURE OF BENZOIN AdvReac BLISTERS Uncoded 05/17/21 07:59 AND RASH Physical Exam Osteopathic Statement: *. No significant issues noted on an osteopathic structural exam other than those noted in the History and Physical/Consult. Vitals: Vital Signs Temp Pulse Pulse Resp BP BP Pulse Ox 05/18/21 09:25 97.5 F L 79 17 138/67 95 05/18/21 05:55 95 F L 68 17 130/71 95 05/18/21 02:14 98.7 F 73 16 131/68 94 L 05/17/21 20:00 98.5 F 75 16 145/72 93 L 05/17/21 18:02 98.4 F 81 18 140/71 95 05/17/21 17:41 87 18 126/84 96 05/17/21 15:38 86 18 124/73 97 Intake and Output 05/17/21 05/18/21 05/18/21 22:59 06:59 14:59 Other: Voiding Method Toilet # Voids 3 1 Weight 88.451 kg No acute distress, oriented 3. On room air. HEENT examination is grossly unremarkable. Neck supple. Full range of motion. No adenopathy thyromegaly or neck vein distention. Cardiovascular examination reveals regular rhythm rate. S1-S2 normal. No S3 or S4. No discernible murmur noted. Heart rate 71 bpm. Lungs reveal clear breath sounds. Breath sounds are equal bilaterally. No adventitious lung sounds including wheezes rhonchi or crackles. Abdomen mildly tender on palpation. Bowel sounds are noted. No masses. Extremities are intact. No cyanosis clubbing or edema. Skin is without rash or lesion. Neurologic examination is brief but nonfocal. Results - Laboratory Findings CBC and BMP: 05/18/21 06:55 05/18/21 06:55 PT/INR, D-dimer PT 11.0 sec (9.0-12.0) 05/16/21 23:45 INR 1.0 (<1.2) 05/16/21 23:45 Abnormal lab findings: Abnormal Labs 05/16/21 05/16/21 05/16/21 23:45 23:45 23:45 WBC 19.9 H RBC Hgb Immature Gran # Neutrophils # 18.6 H Lymphocytes # 0.7 L Monocytes # Eosinophils # Anion Gap BUN 29 H BUN/Creatinine Ratio Glucose 294 H POC Glucose (mg/dL) Plasma Lactic Acid Case 2.8 H* Calcium Total Bilirubin 1.5 H Alkaline Phosphatase 137 H Ur Specific [place] Urine Protein Urine Glucose (UA) Urine Ketones Coronavirus (PCR) 05/17/21 05/17/21 05/17/21 01:32 05:26 15:26 WBC 19.4 H RBC Hgb Immature Gran # Neutrophils # 18.4 H Lymphocytes # 0.5 L Monocytes # Eosinophils # Anion Gap BUN BUN/Creatinine Ratio Glucose POC Glucose (mg/dL) Plasma Lactic Acid Case Calcium Total Bilirubin Alkaline Phosphatase Ur Specific [place] >1.050 H Urine Protein Trace H Urine Glucose (UA) 4+ H Urine Ketones 2+ H Coronavirus (PCR) Detected A 05/17/21 05/18/21 05/18/21 21:02 06:44 06:55 WBC 21.13 H RBC 4.35 L Hgb 12.9 L Immature Gran # 0.11 H Neutrophils # 18.08 H Lymphocytes # Monocytes # 1.19 H Eosinophils # 0.02 L Anion Gap BUN BUN/Creatinine Ratio Glucose POC Glucose (mg/dL) 228 H 134 H Plasma Lactic Acid Case Calcium Total Bilirubin Alkaline Phosphatase Ur Specific [place] Urine Protein Urine Glucose (UA) Urine Ketones Coronavirus (PCR) 05/18/21 05/18/21 06:55 11:24 WBC RBC Hgb Immature Gran # Neutrophils # Lymphocytes # Monocytes # Eosinophils # Anion Gap 12.60 H BUN BUN/Creatinine Ratio 26.63 H Glucose 140 H POC Glucose (mg/dL) 292 H Plasma Lactic Acid Case Calcium 8.6 L Total Bilirubin Alkaline Phosphatase Ur Specific [place] Urine Protein Urine Glucose (UA) Urine Ketones Coronavirus (PCR) Assessment and Plan Assessment: Acute abdominal pain, nausea, vomiting, bloody diarrhea, and a computed tomography scan suggestive of colitis. Positive testing for coronavirus, without any associated pulmonary complaints and no evidence of coronavirus associated pneumonia. History of hyperlipidemia. History of diabetes mellitus. History of hypertension. History of gastroesophageal reflux disease. Plan: Plan dated 05/18/2021. Currently, the patient does not have any pulmonary complaints whatsoever which includes shortness of breath, cough, wheezing, chest tightness, chest congestion, or phlegm production. All of his issues related to the gastrointestinal tract. Could he have coronavirus associated GI distress/colit is, possibly?. We will see the patient moving forward only as needed. Additional recommendations and suggestions are forthcoming. Please feel free to call us back on the case should the patient develop any pulmonary issues. Time with Patient: Greater than 30
--- NOTE | 2021-05-18 15:17 | P.PN ---
Subjective Progress Note Date: 05/18/21 CHIEF COMPLAINT: Colitis HISTORY OF PRESENT ILLNESS: The patient is a 75-year-old male admitted with diarrhea with blood and colitis. Patient is coronavirus positive and vaccinated. He reports his abdominal pain is better. ROS: No reports of nausea and vomiting. No fevers or chills. No new chest pain. PHYSICAL EXAM: VITAL SIGNS: Reviewed CONSTITUTIONAL: Well developed and in no acute distress. EYES: Conjuctivae without sclera icterus. Extraocular movements grossly intact. HEAD, EARS, NOSE, THROAT: Moist buccal mucosa. Head is atraumatic, normocephalic. Hears conversational speech. No nasal drainage. NECK: No gross thyroidomegaly. No jugular venous distention. RESPIRATORY: Non-labored respirations and equal bilateral excursions. CARDIOVASCULAR: Palpable 2+ radial pulses. ABDOMEN: Soft. No peritonitis. MUSCULOSKELETAL: No gross deformity of the lower extremities noted. No clubbing. No cyanosis. SKIN: Good skin turgor. Well perfused. NEUROLOGIC: Cranial nerves II through XII grossly intact. No focal or lateralizing signs. PSYCH: Appropriate affect. Alert and oriented to person, place and time. CLINICAL LABS: Reviewed. Coronavirus positive. Leukocytosis with white blood cell count elevated from 19,000 -21,000. C. diff negative STUDIES: CT of the abdomen and pelvis with oral and IV contrast demonstrates thickening along the transverse colon extended to the splenic flexure and proximal descending colon for colitis. Presence of diverticulosis. Small hiatal hernia identified. This is my independent interpretation. ASSESSMENT: 1. Colitis with leukocytosis PLAN: 1. Supportive management for colitis with IV fluids and antibiotic 2. Recommend infectious disease consultation due to complicated diverticulitis and presence of coronavirus Objective - Vital Signs Vital signs: Vital Signs Temp 97.5 F L 05/18/21 09:25 Pulse 79 05/18/21 09:25 Resp 17 05/18/21 09:25 BP 138/67 05/18/21 09:25 Pulse Ox 95 05/18/21 09:25 Intake & Output 05/17/21 05/18/21 05/18/21 18:59 06:59 18:59 Weight 88.451 kg Other: Voiding Method Toilet # Voids 3 1 - Labs CBC & Chem 7: 05/18/21 06:55 05/18/21 06:55 Labs: Abnormal Lab Results - Last 24 Hours (Table) 05/17/21 05/17/21 05/18/21 Range/Units 15:26 21:02 06:44 WBC 19.4 H (3.8-10.6) k/uL RBC (4.40-5.60) X 10*6/uL Hgb (13.0-17.0) g/dL Immature Gran # (0.00-0.04) X 10*3/uL Neutrophils # 18.4 H (1.3-7.7) k/uL Lymphocytes # 0.5 L (1.0-4.8) k/uL Monocytes # (0.20-1.00) X 10*3/uL Eosinophils # (0.04-0.35) X 10*3/uL Anion Gap (4.00-12.00) mmol/L BUN/Creatinine Ratio (12.00-20.00) Ratio Glucose (70-110) mg/dL POC Glucose (mg/dL) 228 H 134 H (75-99) mg/dL Calcium (8.7-10.3) mg/dL 05/18/21 05/18/21 05/18/21 Range/Units 06:55 06:55 11:24 WBC 21.13 H (3.8-10.6) k/uL RBC 4.35 L (4.40-5.60) X 10*6/uL Hgb 12.9 L (13.0-17.0) g/dL Immature Gran # 0.11 H (0.00-0.04) X 10*3/uL Neutrophils # 18.08 H (1.3-7.7) k/uL Lymphocytes # (1.0-4.8) k/uL Monocytes # 1.19 H (0.20-1.00) X 10*3/uL Eosinophils # 0.02 L (0.04-0.35) X 10*3/uL Anion Gap 12.60 H (4.00-12.00) mmol/L BUN/Creatinine Ratio 26.63 H (12.00-20.00) Ratio Glucose 140 H (70-110) mg/dL POC Glucose (mg/dL) 292 H (75-99) mg/dL Calcium 8.6 L (8.7-10.3) mg/dL Microbiology - Last 24 Hours (Table) 05/17/21 03:00 Blood Culture - Preliminary Blood No Growth after 24 hours 05/17/21 02:45 Blood Culture - Preliminary Blood No Growth after 24 hours 05/17/21 10:18 Stool Culture - Preliminary Stool Assessment and Plan (1) COVID-19 Current Visit: Yes Status: Acute Code(s): U07.1 - COVID-19 SNOMED Code(s): 513963034 (2) Colitis Current Visit: Yes Status: Acute Code(s): K52.9 - NONINFECTIVE GASTROENTERITIS AND COLITIS, UNSPECIFIED SNOMED Code(s): 71420741 (3) Sepsis Current Visit: Yes Status: Acute Code(s): A41.9 - SEPSIS, UNSPECIFIED ORGANISM SNOMED Code(s): 98468321
[2021-05-18] MEDS: HYDROmorphone 0.5 MG/0.5 ML SYRINGE IVP PRN (15:39)
[2021-05-18] MEDS: TRIMETHOBENZAMIDE 100 MG/ML 2 ML VIAL IM PRN (16:18)
[2021-05-18 16:42] LABS: Glucose,Whole Blood 268 mg/dL (75-99)
[2021-05-18] MEDS: INSULIN ASPART (NovoLOG) 100 UNIT/ML VIAL SQ SCH (17:29)
[2021-05-18] MEDS: ONDANSETRON 4 MG/2 ML VIAL IVP SCH (17:30)
[2021-05-18] MEDS ORDERED: HYDROmorphone 1 MG/ML 1 ML SYRINGE IVP PRN (17:47)
[2021-05-18] MEDS ORDERED: METOCLOPRAMIDE 5 MG/ML 2 ML VIAL IVP PRN (17:47)
[2021-05-18] MEDS ORDERED: hydrALAZINE HCL 20 MG/ML 1 ML VIAL IVP STA ×2 (17:55→20:25)
[2021-05-18] MEDS ORDERED: ACETAMINOPHEN TAB 325 MG TAB PO PRN (17:56)
[2021-05-18 18:28] LABS: HCT 45.5 % (39.0-53.0); HGB 14.6 gm/dL (13.0-17.5); MCH 30.3 pg (25.0-35.0); MCHC 32.2 g/dL (31.0-37.0); MCV 94.2 fL (80.0-100.0); Mean Platelet Volume 8.1; Platelet Count 284 k/uL (150-450); RBC 4.83 m/uL (4.30-5.90); RDW 12.8 % (11.5-15.5); WBC 23.7 k/uL (3.8-10.6)
--- NOTE | 2021-05-18 18:51 | XR ---
EXAMINATION TYPE: XR abdomen acute w cxr DATE OF EXAM: 05/18/2021 COMPARISON: NONE HISTORY: Nausea and vomiting TECHNIQUE: 5 views FINDINGS: Heart and mediastinum appear within normal limits. Lungs are clear of infiltrate. There is previous right shoulder surgery. The bowel gas pattern is fairly normal. There is no sign of intestinal obstruction or pneumoperitoneu m. Fecal pattern is normal. There is no evidence of a mass. There are no pathologic calcifications ov er the kidneys. IMPRESSION: Nonacute abdomen. Normal chest.
--- NOTE | 2021-05-18 19:58 | P.PN ---
Progress Note - Text Progress Note Date: 05/18/21 Notified by nursing and patient has increased abdominal pain. Abdominal x-ray ordered and independently review demonstrating no free air or bowel obstruction. WBC elevated. Recommend infectious disease consultation.
[2021-05-18] MEDS ORDERED: hydrALAZINE HCL 20 MG/ML 1 ML VIAL IVP PRN (20:36)
[2021-05-18] MEDS ORDERED: INSULIN DETEMIR (LEVEMIR) 100 UNIT/ML SYR SQ ONE (21:00)
[2021-05-18 21:10] LABS: Glucose,Whole Blood 209 mg/dL (75-99)
[2021-05-18] MEDS ORDERED: CALCIUM CARBONATE 500 MG CHEWABLE PO PRN (22:37)
--- NOTE | 2021-05-18 23:03 | HP ---
HISTORY AND PHYSICAL DATE OF SERVICE: 05/18/2021. CHIEF COMPLAINTS: Abdominal pain and vomiting, bloody diarrhea and hematochezia. HISTORY OF PRESENT ILLNESS: This 75-year-old gentleman with a past medical history of diabetes mellitus, history of GERD, extensive heartburn, history of DJD, being followed by Dr. Nisa Allan in the outpatient setting, presented to [facility] with complains of lower abdominal pain. Patient had some bloody diarrhea also. The patient was evaluated. Hemoglobin was found to be 12.9 and 14.6. COVID-19 was found to be positive. Lactic acid was also elevated, present on admission. Lactoferrin was also elevated. C difficile is negative. The patient also had CT scan of the abdomen and pelvis on admission which showed diffuse thickening of the wall of the transverse colon with a proximal descending colon some nonspecific colitis also noted. Dr. Stephen is planning colonoscopy. No chest pain. No palpitations. No fever. PHYSICAL EXAMINATION: Alert and oriented x3. Pulse 83, blood pressure 193/81, respiration 17, temperature 98.2, pulse ox 97% on room air. HEENT: Conjunctivae normal. NECK: No jugular venous distention. CARDIOVASCULAR: S1, S2 muffled. RESPIRATION: Breath sounds diminished at the bases. A few scattered rhonchi. ABDOMEN: Soft, obese. Mild diffuse discomfort on palpation. No mass palpable. LEGS: No edema. No swelling. NERVOUS SYSTEM: Higher functions as mentioned earlier. Moves all 4 limbs. No focal motor or sensory deficit. LYMPHATICS: No lymph node palpable in neck, axillae or groin. SKIN: No ulcer, rash, bleeding. JOINTS: No active deforming arthropathy. LABS: WBC 23.7, sodium 140, potassium 4 and glucose 294. Lactic acid noted. Other labs are noted. CT scan personally reviewed. ASSESSMENT: 1. Acute abdominal pain with hematochezia; possible acute colitis. 2. Acute COVID-19 infection. 3. Hypertensive urgency. 4. Elevated white count with possible sepsis, present on admission, secondary to colitis. 5. Diabetes mellitus, type 2, uncontrolled with hyperglycemia. 6. Elevated lactic acid secondary to sepsis. 7. History of diabetes mellitus, type 2. 8. Gastroesophageal reflux disease. 9. Extensive heartburn, gastroesophageal reflux disease. 10.History of degenerative joint disease. 11.FULL CODE. RECOMMENDATIONS AND DISCUSSION: In this 75-year-old gentleman who presented with multiple complex medical issues, we will monitor the patient closely, continue the current medications, continue symptomatic treatment. Will initiate empiric antibiotics for colitis. I would also recommend Norvasc as well as hydralazine p.r.n. for the blood pressure elevation. The patient is not hypoxic anymore. I would also recommend a chest x-ray as well as inflammatory markers of COVID-19. Prognosis guarded. Further recommendations to follow. MMODL / IJN: [id number] / ROSE
[2021-05-18 23:24] LABS: C Reactive Protein 14.9 mg/dL (<1.0)
[2021-05-18] MEDS ORDERED: CALCIUM CARBONATE 500 MG CHEWABLE PO ONE (23:59)
[2021-05-18] MEDS ORDERED: INSULIN ASPART (NovoLOG) 100 UNIT/ML VIAL SQ ONE (23:59)
[2021-05-18] MEDS ORDERED: PANTOPRAZOLE 40 MG/10 ML VIAL ONE (23:59)
[2021-05-18] MEDS ORDERED: hydrALAZINE HCL 20 MG/ML 1 ML VIAL ONE (23:59)
[2021-05-18] MEDS ORDERED: TRIMETHOBENZAMIDE 100 MG/ML 2 ML VIAL IM ONE (23:59)
[2021-05-18] MEDS ORDERED: metroNIDAZOLE-NS PMX 500 MG/100 ML BAG ONE (23:59)
[2021-05-18] MEDS ORDERED: LEVOFLOXACIN 750MG-D5W PMX 750 MG/150 ML BAG IVPB ONE (23:59)
[2021-05-18] MEDS ORDERED: ACETAMINOPHEN IV (For NPO) 1,000 MG/100 ML VIAL ONE (23:59)
[2021-05-19] MEDS: ASCORBIC ACID 500 MG TAB PO SCH ×3 (01:12→21:27)
[2021-05-19] MEDS: amLODIPine 10 MG TAB PO SCH ×2 (01:12→07:53)
[2021-05-19] MEDS: ATORVASTATIN 20 MG TAB PO SCH ×2 (01:12→21:27)
[2021-05-19] MEDS: INSULIN ASPART (NovoLOG) 100 UNIT/ML VIAL SQ SCH ×5 (01:12→21:26)
[2021-05-19] MEDS: PANTOPRAZOLE 40 MG/10 ML VIAL IVP SCH ×3 (01:13→21:27)
[2021-05-19] MEDS: ACETAMINOPHEN IV (For NPO) 1,000 MG in EMPTY BAG 1 BAG IVPB SCH ×4 (01:13→17:56)
[2021-05-19] MEDS: metroNIDAZOLE-NS PMX 500 MG in SALINE 1 100ML.BAG IVPB SCH ×4 (01:13→18:16)
[2021-05-19] MEDS: INSULIN DETEMIR (LEVEMIR) 100 UNIT/ML SYR SQ SCH ×2 (01:13→21:27)
[2021-05-19] MEDS: ONDANSETRON 4 MG/2 ML VIAL IVP SCH ×4 (01:14→18:16)
[2021-05-19] MEDS: LEVOFLOXACIN 750MG-D5W PMX 750 MG in DEXTROSE/WATER 1 150ML.BAG IVPB SCH (02:47)
[2021-05-19] MEDS: TRIMETHOBENZAMIDE 100 MG/ML 2 ML VIAL IM PRN (05:40)
[2021-05-19 06:48] LABS: Glucose,Whole Blood 156 mg/dL (75-99)
[2021-05-19] MEDS: LOSARTAN 50 MG TAB PO SCH (07:53)
[2021-05-19] MEDS: DEXAMETHASONE SOD PHOSPHATE 10 MG/ML 1 ML VIAL IV SCH (07:54)
[2021-05-19] MEDS: ENOXAPARIN 40 MG/0.4 ML SYRINGE SQ SCH (07:54)
[2021-05-19] MEDS ORDERED: PEG 3350-NA SULF,BICARB,CL/KCL 4,000 ML BOTTLE PO ONE (09:00)
[2021-05-19] MEDS: SODIUM CHLORIDE 0.9% 1,000 ML IV SCH ×2 (09:18→21:27)
[2021-05-19 10:17] LABS: Basophils # (A) 0.04 X 10*3/uL (0.00-0.10); Basophils % (A) 0.2 %; Eosinophils # (A) 0.08 X 10*3/uL (0.04-0.35); Eosinophils % (A) 0.3 %; HGB 14.3 g/dL (13.0-17.0); Lymphocytes # (A) 1.95 X 10*3/uL (0.90-5.00); Lymphocytes % (A) 7.9 %; MCH 30.7 pg (27.0-32.0); MCV 90.1 fL (80.0-97.0); Mean Platelet Volume 10.1 fL (9.5-12.2); Monocytes # (A) 1.51 X 10*3/uL (0.20-1.00); Monocytes % (A) 6.2 %; Neutrophils # (A) 20.72 X 10*3/uL (1.80-7.70); Neutrophils % (A) 84.4 %; Platelet Count 309 X 10*3/uL (140-440); RBC 4.66 X 10*6/uL (4.40-5.60); RDW 13.1 % (11.5-14.5); WBC 24.55 X 10*3/uL (4.50-10.00)
[2021-05-19 10:51] LABS: African American GFR (CKD) 85.6 (60.0-200.0); BUN/Creat Ratio 20.4 Ratio (12.00-20.00); Blood Urea Nitrogen 20.4 mg/dL (9.0-27.0); Calcium 9.2 mg/dL (8.7-10.3); Non-African American GFR(CKD) 73.8 (60.0-200.0)
[2021-05-19 11:55] LABS: Glucose,Whole Blood 180 mg/dL (75-99)
[2021-05-19] MEDS ORDERED: SODIUM CHLORIDE 0.9% 1,000 ML IV ONE (12:43)
[2021-05-19] MEDS ORDERED: SCOPOLAMINE 1.5MG/72HR PATCH TRANSDERM STA (12:43)
--- NOTE | 2021-05-19 12:47 | P.PN ---
Subjective Progress Note Date: 05/19/21 CHIEF COMPLAINT: Colitis HISTORY OF PRESENT ILLNESS: The patient is a 75-year-old male admitted with diarrhea with blood and colitis. Patient is coronavirus positive and vaccinated. He reports having acute onset abdominal cranking including bloating last night for which I was notified. This morning, patient reports his abdominal pain has improved from 10 out of 10 to tolerable. Reports moderate to severe nausea. He reports intolerance to Tigan intramuscular medication. ROS: No fevers or chills. No new chest pain. Has nausea. Has bowel movements. PHYSICAL EXAM: VITAL SIGNS: Reviewed CONSTITUTIONAL: Well developed and in no acute distress. EYES: Conjuctivae without sclera icterus. Extraocular movements grossly intact. HEAD, EARS, NOSE, THROAT: Moist buccal mucosa. Head is atraumatic, normocephalic. Hears conversational speech. No nasal drainage. NECK: No gross thyroidomegaly. No jugular venous distention. RESPIRATORY: Non-labored respirations and equal bilateral excursions. CARDIOVASCULAR: Palpable 2+ radial pulses. ABDOMEN: Soft. No peritonitis. MUSCULOSKELETAL: No clubbing. No cyanosis. SKIN: Good skin turgor. Well perfused. NEUROLOGIC: Cranial nerves II through XII grossly intact. No focal or lateralizing signs. PSYCH: Appropriate affect. Alert and oriented to person, place and time. CLINICAL LABS: Reviewed. Coronavirus positive. Leukocytosis with white blood cell count elevated from 19,000 -21,000, now over 24,000. Stool cultures pending. Creatinine normal 1.0. STUDIES: Abdominal x-ray acute series reviewed demonstrating no free air. Nonspecific bowel gas pattern. This is my independent interpretation. ASSESSMENT: 1. Colitis with leukocytosis 2. Sepsis 3. COVID-19 positive status PLAN: 1. For his chronic nausea, IV fluids advised due to severity of diarrhea. 2. Reports intolerance to bowel prep. Patient encouraged to do what he can tolerate. 3. He has abdominal cramping spasms and Bentyl started. 4. Scopolamine patch ordered for severe nausea. 5. Patient is elevated risk for complications due to sepsis and severity of colitis Objective - Vital Signs Vital signs: Vital Signs Temp 98.4 F 05/19/21 09:35 Pulse 85 05/19/21 09:35 Resp 17 05/19/21 09:35 BP 135/66 10/17/21 09:35 Pulse Ox 94 L 05/19/21 09:35 Intake & Output 05/18/21 05/19/21 05/19/21 18:59 06:59 18:59 Other: Voiding Method Toilet Toilet # Voids 1 3 - Labs CBC & Chem 7: 05/19/21 05:44 05/19/21 05:44 Labs: Abnormal Lab Results - Last 24 Hours (Table) 05/17/21 05/18/21 05/18/21 Range/Units 10:18 06:55 06:55 WBC 21.13 H (4.50-10.00) X 10*3/uL RBC 4.35 L (4.40-5.60) X 10*6/uL Hgb 12.9 L (13.0-17.0) g/dL Immature Gran # 0.11 H (0.00-0.04) X 10*3/uL Neutrophils # 18.08 H (1.80-7.70) X 10*3/uL Monocytes # 1.19 H (0.20-1.00) X 10*3/uL Eosinophils # 0.02 L (0.04-0.35) X 10*3/uL ESR (0-15) mm/hr D-Dimer (<0.60) mg/L FEU Carbon Dioxide (21.6-31.8) mmol/L Anion Gap 12.60 H (4.00-12.00) mmol/L BUN/Creatinine Ratio 26.63 H (12.00-20.00) Ratio Glucose 140 H (70-110) mg/dL POC Glucose (mg/dL) (75-99) mg/dL Calcium 8.6 L (8.7-10.3) mg/dL C-Reactive Protein (<1.0) mg/dL Stool Lactoferrin POSITIVE A (NEGATIVE) 05/18/21 05/18/21 05/18/21 Range/Units 16:39 17:58 19:46 WBC 23.7 H (4.50-10.00) X 10*3/uL RBC (4.40-5.60) X 10*6/uL Hgb (13.0-17.0) g/dL Immature Gran # (0.00-0.04) X 10*3/uL Neutrophils # (1.80-7.70) X 10*3/uL Monocytes # (0.20-1.00) X 10*3/uL Eosinophils # (0.04-0.35) X 10*3/uL ESR (0-15) mm/hr D-Dimer (<0.60) mg/L FEU Carbon Dioxide (21.6-31.8) mmol/L Anion Gap (4.00-12.00) mmol/L BUN/Creatinine Ratio (12.00-20.00) Ratio Glucose (70-110) mg/dL POC Glucose (mg/dL) 268 H (75-99) mg/dL Calcium (8.7-10.3) mg/dL C-Reactive Protein 14.9 H (<1.0) mg/dL Stool Lactoferrin (NEGATIVE) 05/18/21 05/18/21 05/18/21 Range/Units 21:08 22:18 22:18 WBC (4.50-10.00) X 10*3/uL RBC (4.40-5.60) X 10*6/uL Hgb (13.0-17.0) g/dL Immature Gran # (0.00-0.04) X 10*3/uL Neutrophils # (1.80-7.70) X 10*3/uL Monocytes # (0.20-1.00) X 10*3/uL Eosinophils # (0.04-0.35) X 10*3/uL ESR 20 H (0-15) mm/hr D-Dimer 1.74 H (<0.60) mg/L FEU Carbon Dioxide (21.6-31.8) mmol/L Anion Gap (4.00-12.00) mmol/L BUN/Creatinine Ratio (12.00-20.00) Ratio Glucose (70-110) mg/dL POC Glucose (mg/dL) 209 H (75-99) mg/dL Calcium (8.7-10.3) mg/dL C-Reactive Protein (<1.0) mg/dL Stool Lactoferrin (NEGATIVE) 05/19/21 05/19/21 05/19/21 Range/Units 05:44 05:44 06:46 WBC 24.55 H (4.50-10.00) X 10*3/uL RBC (4.40-5.60) X 10*6/uL Hgb (13.0-17.0) g/dL Immature Gran # 0.25 H (0.00-0.04) X 10*3/uL Neutrophils # 20.72 H (1.80-7.70) X 10*3/uL Monocytes # 1.51 H (0.20-1.00) X 10*3/uL Eosinophils # (0.04-0.35) X 10*3/uL ESR (0-15) mm/hr D-Dimer (<0.60) mg/L FEU Carbon Dioxide 21.0 L (21.6-31.8) mmol/L Anion Gap 15.00 H (4.00-12.00) mmol/L BUN/Creatinine Ratio 20.40 H (12.00-20.00) Ratio Glucose 162 H (70-110) mg/dL POC Glucose (mg/dL) 156 H (75-99) mg/dL Calcium (8.7-10.3) mg/dL C-Reactive Protein (<1.0) mg/dL Stool Lactoferrin (NEGATIVE) 05/19/21 Range/Units 11:53 WBC (4.50-10.00) X 10*3/uL RBC (4.40-5.60) X 10*6/uL Hgb (13.0-17.0) g/dL Immature Gran # (0.00-0.04) X 10*3/uL Neutrophils # (1.80-7.70) X 10*3/uL Monocytes # (0.20-1.00) X 10*3/uL Eosinophils # (0.04-0.35) X 10*3/uL ESR (0-15) mm/hr D-Dimer (<0.60) mg/L FEU Carbon Dioxide (21.6-31.8) mmol/L Anion Gap (4.00-12.00) mmol/L BUN/Creatinine Ratio (12.00-20.00) Ratio Glucose (70-110) mg/dL POC Glucose (mg/dL) 180 H (75-99) mg/dL Calcium (8.7-10.3) mg/dL C-Reactive Protein (<1.0) mg/dL Stool Lactoferrin (NEGATIVE) Microbiology - Last 24 Hours (Table) 05/17/21 03:00 Blood Culture - Preliminary Blood No Growth after 48 hours 05/17/21 02:45 Blood Culture - Preliminary Blood No Growth after 48 hours Assessment and Plan (1) COVID-19 Current Visit: Yes Status: Acute Code(s): U07.1 - COVID-19 SNOMED Code(s): 003853457 (2) Colitis Current Visit: Yes Status: Acute Code(s): K52.9 - NONINFECTIVE GASTROENTERITIS AND COLITIS, UNSPECIFIED SNOMED Code(s): 76131931 (3) Sepsis Current Visit: Yes Status: Acute Code(s): A41.9 - SEPSIS, UNSPECIFIED ORGANISM SNOMED Code(s): 76612120
[2021-05-19] MEDS: DICYCLOMINE 10 MG CAP PO SCH ×3 (13:21→21:27)
[2021-05-19 16:23] LABS: Glucose,Whole Blood 184 mg/dL (75-99)
--- NOTE | 2021-05-19 17:48 | XR ---
EXAMINATION TYPE: XR chest 1V portable DATE OF EXAM: 05/19/2021 COMPARISON: NONE HISTORY: Chest pain TECHNIQUE: Single view FINDINGS: Heart and mediastinum are normal. Lungs are clear. Diaphragm is normal. Bony thorax is inta ct. IMPRESSION: No active cardiopulmonary disease.
--- NOTE | 2021-05-19 17:57 | PN ---
PROGRESS NOTE DATE OF SERVICE: 05/19/2021 This 75-year-old gentleman admitted with acute colitis also had history of GI bleed. COVID-19 is positive. No chest pain. No palpitations. No fever. PHYSICAL EXAMINATION: Alert and oriented x3. Pulse 78, blood pressure 142/70, respiration 17, temperature 98.2, pulse ox 97% on room air. HEENT: Conjunctivae normal. NECK: No jugular venous distention. CARDIOVASCULAR: S1, S2 muffled. RESPIRATION: Breath sounds diminished at the bases. A few scattered rhonchi. ABDOMEN: Soft. Mild diffuse tenderness also present. No guarding. No rigidity. No mass palpable. LEGS: No edema. No swelling. NERVOUS SYSTEM: No focal deficit. LABS: WBC 24.5 and D-dimer is 1.74. ASSESSMENT: 1. Acute abdominal pain with hematochezia, possible acute colitis. 2. Acute COVID-19 infection. 3. Hypertensive urgency. 4. Elevated white count with possible sepsis, present on admission, secondary to colitis. 5. Diabetes mellitus, type 2, uncontrolled with hyperglycemia. 6. Elevated lactic acidosis secondary to sepsis. 7. Diabetes mellitus, type 2. 8. Gastroesophageal reflux disease. 9. Extensive heartburn, gastroesophageal reflux disease. 10.History of degenerative joint disease. 11.FULL CODE. RECOMMENDATIONS AND DISCUSSION: In this 75-year-old gentleman who presented with multiple complex medical issues, we will monitor the patient closely, continue the current medications, continue with symptomatic treatment. The patient had possible colitis and possibly features of COVID- 19. I would also recommend a baseline chest x-ray. Also recommend a CT angio of the chest to rule out the possibility of any pulmonary embolism. Further recommendations to follow. MMODL / IJN: [id number] /
[2021-05-19 20:43] LABS: Glucose,Whole Blood 181 mg/dL (75-99)
--- NOTE | 2021-05-19 22:32 | CT ---
EXAMINATION TYPE: CT angio chest DATE OF EXAM: 05/19/2021 COMPARISON: 02/02/2020 HISTORY: Suspect PE, Covid + CT DLP: 385 mGycm Automated exposure control for dose reduction was used. CONTRAST: Performed with IV Contrast, patient injected with 100 mL of Isovue 370. There are 3-D post processed images. The lungs are clear of consolidation. There is no evidence of a pulmonary mass. There is no mediastin al adenopathy. Thoracic aorta is intact. There is no aneurysm or dissection. There is normal contrast opacification of the pulmonary arteries. There are no filling defects. Heart size is fairly normal. There is no pericardial effusion. Thoracic spine is intact. There is some degenerative spur formation. Sternum is intact. IMPRESSION: Negative CT angiogram of the chest. No evidence of pulmonary embolism. Heart and lungs appear not sig nificantly different than old exam. There is some new minimal subsegmental atelectasis at the posteri or lung bases.
[2021-05-19] MEDS ORDERED: CALCIUM CARBONATE 500 MG CHEWABLE PO ONE (23:59)
[2021-05-19] MEDS ORDERED: ONDANSETRON 4 MG/2 ML VIAL ONE (23:59)
[2021-05-19] MEDS ORDERED: metroNIDAZOLE-NS PMX 500 MG/100 ML BAG ONE ×2 (23:59)
[2021-05-20] MEDS: ONDANSETRON 4 MG/2 ML VIAL IVP SCH ×5 (01:06→23:58)
[2021-05-20] MEDS: metroNIDAZOLE-NS PMX 500 MG in SALINE 1 100ML.BAG IVPB SCH ×5 (01:07→23:58)
[2021-05-20] MEDS: LEVOFLOXACIN 750MG-D5W PMX 750 MG in DEXTROSE/WATER 1 150ML.BAG IVPB SCH (03:57)
[2021-05-20 06:49] LABS: Basophils % (A) 0 %; Eosinophils % (A) 0 %; HCT 39.3 % (39.0-53.0); HGB 13.4 gm/dL (13.0-17.5); Lymphocytes # (A) 1.8 k/uL (1.0-4.8); Lymphocytes % (A) 11 %; MCH 31.7 pg (25.0-35.0); MCHC 34.2 g/dL (31.0-37.0); MCV 92.8 fL (80.0-100.0); Mean Platelet Volume 7.3; Monocytes # (A) 0.9 k/uL (0-1.0); Monocytes % (A) 5 %; Neutrophils # (A) 13.5 k/uL (1.3-7.7); Neutrophils % (A) 82 %; Platelet Count 277 k/uL (150-450); RBC 4.24 m/uL (4.30-5.90); RDW 12.7 % (11.5-15.5); WBC 16.4 k/uL (3.8-10.6)
[2021-05-20 07:07] LABS: African American GFR (CKD) >90 (>60 ml/min/1.73 sqM); Anion Gap 5 mmol/L; Blood Urea Nitrogen 21 mg/dL (9-20); Carbon Dioxide 25 mmol/L (22-30); Chloride 108 mmol/L (98-107); Glucose 87 mg/dL (74-99); Non-African American GFR(CKD) 79 (>60 ml/min/1.73 sqM); Potassium 4.1 mmol/L (3.5-5.1); Sodium 138 mmol/L (137-145)
[2021-05-20 07:08] LABS: Glucose,Whole Blood 158 mg/dL (75-99)
[2021-05-20] MEDS: INSULIN ASPART (NovoLOG) 100 UNIT/ML VIAL SQ SCH ×4 (08:39→20:43)
[2021-05-20] MEDS: DICYCLOMINE 10 MG CAP PO SCH ×4 (08:39→20:55)
[2021-05-20] MEDS: ASCORBIC ACID 500 MG TAB PO SCH ×2 (08:39→20:55)
[2021-05-20] MEDS: ENOXAPARIN 40 MG/0.4 ML SYRINGE SQ SCH (08:39)
[2021-05-20] MEDS: LOSARTAN 50 MG TAB PO SCH (08:40)
[2021-05-20] MEDS: PANTOPRAZOLE 40 MG/10 ML VIAL IVP SCH ×3 (08:40→20:55)
[2021-05-20] MEDS: SODIUM CHLORIDE 0.9% 1,000 ML IV SCH ×2 (08:40→23:58)
[2021-05-20] MEDS: amLODIPine 10 MG TAB PO SCH (08:40)
--- NOTE | 2021-05-20 09:01 | P.CONS ---
History of Present Illness - Reason for Consult Consult date: 05/19/21 colitis and covid 19 Requesting physician: Aleksey Sales - Chief Complaint abd pain x 1 day - History of Present Illness History of present illness : Patient is 75-year-old male presenting to the ER on the for evaluation of sudden onset of abdominal pain that started around 2 in the morning and has been present all day before he presented to hospital patient also have several episodes of bloody diarrhea patient have bleeding of nausea and did have an episode of vomiting denies having any fever or any chills did not have any history of similar episode in the past and no history of abdominal surgery patient denies having any chest pain or shortness of breath or cough with the symptom the patient was evaluated by the ER physician on arrival to the ER the patient was afebrile and no fever has been recorded subsequently patient did have white count of 19 which is up to 24,000 today D-dimer was mildly elevated creatinine has been normal lactic acid was elevated 2.8 bilirubin was 1.5 urine was negative canela PCR came back positive patient did have abdominal pelvis CT diffuse thickening of the wall of the transverse colon and proximal descending colon consistent with nonspecific colitis patient has been evaluated by general surgical team and the patient is currently being treated with Levaquin and Flagyl because of his penicillin allergy patient also have positive Covid test infectious was consulted because of the Covid and colitis patient did mention feeling better since being admitted to the hospital as for his abdominal symptoms are concerned Review of system: CONSTITUTIONAL: Positive for weakness denies fever. EYES: No complaint. ENT: No complaint. RESPIRATORY: No complaint. CARDIOVASCULAR: No complaint. GENITOURINARY: No complaint. GASTROINTESTINAL: As per history of present illness. MUSCULOSKELETAL: No complaint. INTEGUMENTARY: No complaint. PSYCHOLOGIC: No complaint. ENDOCRINE: No complaint. NEUROLOGIC: No complaint. Past medical history : Reviewed, documented below Past surgical history : Reviewed, documented below Social history: Reviewed, documented below Medications: Reviewed, as documented below EXAMINATION: Vital sigans= Reviewed and documented below GENERAL DESCRIPTION elderly male lying in bed, no distress. No tachypnea or accessory muscle of respiration use. HEENT: Shows Pallor , no scleral icterus. Oral mucous membrane is dry. NECK: Trachea central, no thyromegaly. LUNGS: Unlabored breathing. Clear to auscultation anteriorly. No wheeze or crackle. HEART: S1, S2, regular rate and rhythm. ABDOMEN: Soft, no tenderness , guarding or rigidity EXTREMITIES: No edema of feet. SKIN: No rash, no masses palpable. NEUROLOGICAL: The patient is awake, alert, oriented x3, mood and affect normal. LABS AND RADIOLOGY: Reviewed results see below Assessment : Patient presented to hospital with sudden onset of abdominal pain did have bloody diarrhea with evidence of transverse and descending colon c olitis high clinic suspicious for ischemic colitis to be on the top of the list less likely infectious colitis 2-patient with a positive Covid test however do not have any respiratory symptoms and is currently satting 96 to 97% on room air more often incidental finding clinically doubt abdominal symptoms secondary to COVID-19 infection with no hypoxemia and the patient will not qualify for steroids or remdesivir 3-penicillin allergy Plan: 1-continue patient on Levaquin and Flagyl to the patient seems to have responded 2-IV fluid 3-discontinue dexamethasone 4-droplet isolation and respiratory support We will follow on clinical condition and cultures to further adjust medication if needed Thank you for this consultation we will follow the patient along with you Past Medical History Past Medical History: Diabetes Mellitus, GERD/Reflux Additional Past Medical History / Comment(s): EXTENSIVE HEART BURN WITH A COUGH,HAVING SLEEP STUDY DONE History of Any Multi-Drug Resistant Organisms: None Reported Past Surgical History: Joint Replacement, Orthopedic Surgery Additional Past Surgical History / Comment(s): LT TOT KNEE X 2,RT TOT KNEE,MALATHI SHOULDER, MELANOMA REMOVED RT ANKLE Past Anesthesia/Blood Transfusion Reactions: No Reported Reaction Past Psychological History: No Psychological Hx Reported Smoking Status: Never smoker Past Alcohol Use History: None Reported Past Drug Use History: None Reported - Past Family History Father Family Medical History: Coronary Artery Disease (CAD), Myocardial Infarction ([place]) Additional Family Medical History / Comment(s): CABG Mother Family Medical History: No Reported History Additional Family Medical History / Comment(s): ALIVE AT 88 Sister(s) History Unknown: Yes Additional Family Medical History / Comment(s): cancer Medications and Allergies Home Medications Medication Instructions Recorded Confirmed Type Losartan [Cozaar] 50 mg PO DAILY 08/24/15 05/17/21 History Famotidine 40 mg PO HS 02/02/20 05/17/21 History Atorvastatin [Lipitor] 20 mg PO HS 05/17/21 05/17/21 History Dulaglutide [Trulicity] 3 mg SQ TH 05/17/21 05/17/21 History Allergies Allergy/AdvReac Type Severity Reaction Status Date / Time codeine Allergy Unknown Verified 05/17/21 07:59 Penicillins Allergy Swelling, Verified 05/17/21 07:59 REDNESS TINCTURE OF BENZOIN AdvReac BLISTERS Uncoded 05/17/21 07:59 AND RASH Physical Exam Vitals: Vital Signs Temp Pulse Resp BP Pulse Ox 05/19/21 13:19 98.5 F 78 17 142/70 97 05/19/21 09:35 98.4 F 85 17 135/66 94 L 05/19/21 08:00 85 17 05/19/21 05:57 98.2 F 88 18 156/70 97 05/19/21 02:24 98.7 F 70 17 152/71 96 05/18/21 19:59 98.1 F 95 22 180/94 98 05/18/21 18:35 98.2 F 83 17 193/81 97 05/18/21 17:30 98.0 F 86 195/90 98 Intake and Output 05/19/21 05/19/21 05/19/21 06:59 14:59 22:59 Other: Voiding Method Toilet # Voids 3 Results CBC & Chem 7: 05/20/21 06:13 05/20/21 06:13 Labs: Abnormal Lab Results - Last 24 Hours (Table) 05/17/21 05/18/21 05/18/21 Range/Units 10:18 16:39 17:58 WBC 23.7 H (3.8-10.6) k/uL Immature Gran # (0.00-0.04) X 10*3/uL Neutrophils # (1.80-7.70) X 10*3/uL Monocytes # (0.20-1.00) X 10*3/uL ESR (0-15) mm/hr D-Dimer (<0.60) mg/L FEU Carbon Dioxide (21.6-31.8) mmol/L Anion Gap (4.00-12.00) mmol/L BUN/Creatinine Ratio (12.00-20.00) Ratio Glucose (70-110) mg/dL POC Glucose (mg/dL) 268 H (75-99) mg/dL C-Reactive Protein (<1.0) mg/dL Stool Lactoferrin POSITIVE A (NEGATIVE) 05/18/21 05/18/21 05/18/21 Range/Units 19:46 21:08 22:18 WBC (3.8-10.6) k/uL Immature Gran # (0.00-0.04) X 10*3/uL Neutrophils # (1.80-7.70) X 10*3/uL Monocytes # (0.20-1.00) X 10*3/uL ESR 20 H (0-15) mm/hr D-Dimer (<0.60) mg/L FEU Carbon Dioxide (21.6-31.8) mmol/L Anion Gap (4.00-12.00) mmol/L BUN/Creatinine Ratio (12.00-20.00) Ratio Glucose (70-110) mg/dL POC Glucose (mg/dL) 209 H (75-99) mg/dL C-Reactive Protein 14.9 H (<1.0) mg/dL Stool Lactoferrin (NEGATIVE) 05/18/21 05/19/21 05/19/21 Range/Units 22:18 05:44 05:44 WBC 24.55 H (3.8-10.6) k/uL Immature Gran # 0.25 H (0.00-0.04) X 10*3/uL Neutrophils # 20.72 H (1.80-7.70) X 10*3/uL Monocytes # 1.51 H (0.20-1.00) X 10*3/uL ESR (0-15) mm/hr D-Dimer 1.74 H (<0.60) mg/L FEU Carbon Dioxide 21.0 L (21.6-31.8) mmol/L Anion Gap 15.00 H (4.00-12.00) mmol/L BUN/Creatinine Ratio 20.40 H (12.00-20.00) Ratio Glucose 162 H (70-110) mg/dL POC Glucose (mg/dL) (75-99) mg/dL C-Reactive Protein (<1.0) mg/dL Stool Lactoferrin (NEGATIVE) 05/19/21 05/19/21 Range/Units 06:46 11:53 WBC (3.8-10.6) k/uL Immature Gran # (0.00-0.04) X 10*3/uL Neutrophils # (1.80-7.70) X 10*3/uL Monocytes # (0.20-1.00) X 10*3/uL ESR (0-15) mm/hr D-Dimer (<0.60) mg/L FEU Carbon Dioxide (21.6-31.8) mmol/L Anion Gap (4.00-12.00) mmol/L BUN/Creatinine Ratio (12.00-20.00) Ratio Glucose (70-110) mg/dL POC Glucose (mg/dL) 156 H 180 H (75-99) mg/dL C-Reactive Protein (<1.0) mg/dL Stool Lactoferrin (NEGATIVE) Microbiology - Last 24 Hours (Table) 05/17/21 03:00 Blood Culture - Preliminary Blood No Growth after 48 hours 05/17/21 02:45 Blood Culture - Preliminary Blood No Growth after 48 hours
[2021-05-20 11:36] LABS: Glucose,Whole Blood 68 mg/dL (75-99)
[2021-05-20 11:52] LABS: Glucose,Whole Blood 70 mg/dL (75-99)
--- NOTE | 2021-05-20 14:31 | P.PN ---
Subjective Progress Note Date: 05/20/21 CHIEF COMPLAINT: Colitis HISTORY OF PRESENT ILLNESS: Surgical service is following in regards to patient' s colitis and bloody diarrhea. Patient reports on Thursday he had significant abdominal pain with severe nausea. Thursday he had episode of vomiting. His last 3 bowel movements have been brown in color but small amounts. He denies any further bleeding. Unfortunately due to feeling so ill he did not take the GoLYTELY prep yesterday. He was initially scheduled for a colonoscopy today. This has been canceled. Patient does report that he feels a little better today. Patient to have a temp of 100.2 this morning. WBC is down from 24.55- 16.4 hemoglobin down from 14.3-13.4 glucose 68 chest CTA negative for PE PHYSICAL EXAM: VITAL SIGNS: Reviewed. GENERAL: Well-developed in no acute distress. HEENT: No sclera icterus. Extraocular movements grossly intact. Moist buccal mucosa. Head is atraumatic, normocephalic. ABDOMEN: Soft. Nondistended. NEUROLOGIC: Alert and oriented. Cranial nerves II through XII grossly intact. ASSESSMENT: 1. Colitis with leukocytosis 2. Sepsis 3. COVID-19 positive status PLAN: -Colonoscopy for today has been canceled -Further recommendations forthcoming per surgeon -Start clear liquid diet -Continue antibiotics -Continue IV fluids -Continue antibiotics -Continue Bentyl Physician Manager Of Financial Planning note has been reviewed by physician. Signing provider agrees with the documented findings, assessment, and plan of care. Objective - Vital Signs Vital signs: Vital Signs Temp 100.2 F H 05/20/21 10:06 Pulse 73 05/20/21 10:06 Resp 16 05/20/21 10:06 BP 133/75 05/20/21 10:06 Pulse Ox 95 05/20/21 10:06 Intake & Output 05/19/21 05/20/21 05/20/21 18:59 06:59 18:59 Other: Voiding Method Toilet Toilet # Voids 2 2 - Labs CBC & Chem 7: 05/20/21 06:13 05/20/21 06:13 Labs: Abnormal Lab Results - Last 24 Hours (Table) 05/19/21 05/19/21 05/19/21 Range/Units 11:53 16:19 20:41 WBC (3.8-10.6) k/uL RBC (4.30-5.90) m/uL Neutrophils # (1.3-7.7) k/uL Chloride (98-107) mmol/L BUN (9-20) mg/dL POC Glucose (mg/dL) 180 H 184 H 181 H (75-99) mg/dL 05/20/21 05/20/21 05/20/21 Range/Units 06:13 06:13 07:07 WBC 16.4 H (3.8-10.6) k/uL RBC 4.24 L (4.30-5.90) m/uL Neutrophils # 13.5 H (1.3-7.7) k/uL Chloride 108 H (98-107) mmol/L BUN 21 H (9-20) mg/dL POC Glucose (mg/dL) 158 H (75-99) mg/dL Microbiology - Last 24 Hours (Table) 05/17/21 03:00 Blood Culture - Preliminary Blood No Growth after 72 hours 05/17/21 02:45 Blood Culture - Preliminary Blood No Growth after 72 hours 05/17/21 10:18 Stool Culture - Preliminary Stool
[2021-05-20 17:06] LABS: Glucose,Whole Blood 82 mg/dL (75-99)
--- NOTE | 2021-05-20 17:59 | PN ---
PROGRESS NOTE DATE OF SERVICE: 05/20/2021. REASON FOR FOLLOW UP: 1. Colitis likely ischemic. 2. Positive Covid test. INTERVAL HISTORY: Patient did have a low grade fever, 100.2 this morning. The patient is afebrile. The patient overall feeling better. Patient abdominal pain has resolved. Hematochezia has resolved as well. No chest pain, shortness of breath or cough. PHYSICAL EXAMINATION: Blood pressure is 149/77 with a pulse of 80. Temperature 97.5. He is 93% on room air. General description is an elderly male up in the bed in no distress. Respiratory system: Unlabored breathing, decreased intensity of breath sounds, no wheeze. Heart S1, S2. Regular rate and rhythm. Abdomen: Soft. No tenderness. Extremities: No edema of the feet. LABS: Hemoglobin 13.1, white count 16.4, BUN of 21, creatinine 0.95. DIAGNOSTIC IMPRESSION AND PLAN: 1. Patient with admission to the hospital with abdominal pain, hematochezia, likely secondary to the ischemic colitis, seemed to be responding to the supportive treatment of Levaquin, Flagyl and IV fluids, to continue. 2. Patient with positive Covid test, not behaving as Covid pneumonia. Treatment is mostly supportive. MMODL / IJN: [id number] /
[2021-05-20 20:35] LABS: Glucose,Whole Blood 86 mg/dL (75-99)
[2021-05-20] MEDS: INSULIN DETEMIR (LEVEMIR) 100 UNIT/ML SYR SQ SCH (20:47)
[2021-05-20] MEDS: ATORVASTATIN 20 MG TAB PO SCH (20:55)
--- NOTE | 2021-05-20 21:45 | P.PN ---
Subjective Progress Note Date: 05/20/21 He is feeling improved today, minimal abdominal pain and no nausea. Continues with loose stool. He has been afebrile. Denies cough or shortness of breath. Objective - Vital Signs Vital signs: Vital Signs Temp 98 F 05/20/21 18:02 Pulse 75 05/20/21 18:02 Resp 16 05/20/21 18:02 BP 155/83 05/20/21 18:02 Pulse Ox 94 L 05/20/21 18:02 Intake & Output 05/20/21 05/20/21 05/21/21 06:59 18:59 06:59 Intake Total 236 Balance 236 Intake: Oral 236 Other: Voiding Method Toilet Toilet # Voids 2 3 # Bowel Movements 1 - Exam Gen: well developed male in NAD CV: RRR Lungs: normal effort, clear throughout Abd: soft, minimal tenderness LLQ - Labs CBC & Chem 7: 05/20/21 06:13 05/20/21 06:13 Labs: Abnormal Lab Results - Last 24 Hours (Table) 05/20/21 05/20/21 05/20/21 Range/Units 06:13 06:13 07:07 WBC 16.4 H (3.8-10.6) k/uL RBC 4.24 L (4.30-5.90) m/uL Neutrophils # 13.5 H (1.3-7.7) k/uL Chloride 108 H (98-107) mmol/L BUN 21 H (9-20) mg/dL POC Glucose (mg/dL) 158 H (75-99) mg/dL Coronavirus (PCR) (Not Detectd) 05/20/21 05/20/21 05/20/21 Range/Units 10:58 11:35 11:51 WBC (3.8-10.6) k/uL RBC (4.30-5.90) m/uL Neutrophils # (1.3-7.7) k/uL Chloride (98-107) mmol/L BUN (9-20) mg/dL POC Glucose (mg/dL) 68 L 70 L (75-99) mg/dL Coronavirus (PCR) Detected A (Not Detectd) Microbiology - Last 24 Hours (Table) 05/17/21 10:18 Stool Culture - Final Stool 05/17/21 03:00 Blood Culture - Preliminary Blood No Growth after 72 hours 05/17/21 02:45 Blood Culture - Preliminary Blood No Growth after 72 hours Assessment and Plan Plan: Continue with empiric antibiotic therapy, ID following. Repeat COVID PCR test. Continue lovenox
[2021-05-21] MEDS: LEVOFLOXACIN 750MG-D5W PMX 750 MG in DEXTROSE/WATER 1 150ML.BAG IVPB SCH (02:55)
[2021-05-21] MEDS: metroNIDAZOLE-NS PMX 500 MG in SALINE 1 100ML.BAG IVPB SCH ×4 (05:14→23:05)
[2021-05-21] MEDS: ONDANSETRON 4 MG/2 ML VIAL IVP SCH ×4 (05:14→23:06)
[2021-05-21 07:17] LABS: Glucose,Whole Blood 83 mg/dL (75-99)
[2021-05-21] MEDS: DICYCLOMINE 10 MG CAP PO SCH ×4 (08:11→20:46)
[2021-05-21] MEDS: ENOXAPARIN 40 MG/0.4 ML SYRINGE SQ SCH (08:11)
[2021-05-21] MEDS: INSULIN ASPART (NovoLOG) 100 UNIT/ML VIAL SQ SCH ×4 (08:11→20:46)
[2021-05-21] MEDS: ASCORBIC ACID 500 MG TAB PO SCH ×2 (08:11→20:46)
[2021-05-21] MEDS: PANTOPRAZOLE 40 MG/10 ML VIAL IVP SCH ×2 (08:11→20:46)
[2021-05-21] MEDS: amLODIPine 10 MG TAB PO SCH (08:23)
[2021-05-21] MEDS: LOSARTAN 50 MG TAB PO SCH (08:23)
[2021-05-21 09:28] LABS: Basophils % (A) 0 %; Eosinophils # (A) 0.1 k/uL (0-0.7); Eosinophils % (A) 1 %; HCT 41.8 % (39.0-53.0); Lymphocytes % (A) 17 %; MCH 31.2 pg (25.0-35.0); MCHC 33.4 g/dL (31.0-37.0); MCV 93.3 fL (80.0-100.0); Monocytes # (A) 0.7 k/uL (0-1.0); Monocytes % (A) 6 %; Neutrophils % (A) 75 %; Platelet Count 283 k/uL (150-450); RBC 4.48 m/uL (4.30-5.90); RDW 12.8 % (11.5-15.5); WBC 11.9 k/uL (3.8-10.6)
--- NOTE | 2021-05-21 11:28 | P.PN ---
Subjective Progress Note Date: 05/21/21 CHIEF COMPLAINT: Colitis HISTORY OF PRESENT ILLNESS: Surgical service is following in regards to patient' s colitis and bloody diarrhea. Patient reports that he is feeling better today. He denies any pain. He did have a soft brown bowel movement today. Afebrile. WBC has come down from 16.4-11.9. Hemoglobin stable at 14 Patient seen and examined with Dr. montes PHYSICAL EXAM: VITAL SIGNS: Reviewed. GENERAL: Well-developed in no acute distress. HEENT: No sclera icterus. Extraocular movements grossly intact. Moist buccal mucosa. Head is atraumatic, normocephalic. ABDOMEN: Soft. Nondistended. NEUROLOGIC: Alert and oriented. Cranial nerves II through XII grossly intact. ASSESSMENT: 1. Colitis with leukocytosis 2. Sepsis 3. COVID-19 positive PLAN: -Patient scheduled for colonoscopy on , 05/23/[address] montes -Start GoLYTELY prep tomorrow morning -Continue clear liquid diet -Continue antibiotics -Continue IV fluids -Continue Bentyl Physician Video Production Intern note has been reviewed by physician. Signing provider agrees with the documented findings, assessment, and plan of care. Objective - Vital Signs Vital signs: Vital Signs Temp 97.8 F 05/21/21 10:00 Pulse 70 05/21/21 10:00 Resp 16 05/21/21 10:00 BP 136/72 05/21/21 10:00 Pulse Ox 96 05/21/21 10:00 Intake & Output 05/20/21 05/21/21 05/21/21 18:59 06:59 18:59 Intake Total 236 Balance 236 Intake: Oral 236 Other: Voiding Method Toilet # Voids 3 4 # Bowel Movements 1 - Labs CBC & Chem 7: 05/21/21 08:50 05/20/21 06:13 Labs: Abnormal Lab Results - Last 24 Hours (Table) 05/20/21 05/20/21 05/20/21 Range/Units 10:58 11:35 11:51 WBC (3.8-10.6) k/uL Neutrophils # (1.3-7.7) k/uL POC Glucose (mg/dL) 68 L 70 L (75-99) mg/dL Coronavirus (PCR) Detected A (Not Detectd) 05/21/21 Range/Units 08:50 WBC 11.9 H (3.8-10.6) k/uL Neutrophils # 9.0 H (1.3-7.7) k/uL POC Glucose (mg/dL) (75-99) mg/dL Coronavirus (PCR) (Not Detectd) Microbiology - Last 24 Hours (Table) 05/17/21 10:18 Stool Culture - Final Stool 05/17/21 02:45 Blood Culture - Preliminary Blood No Growth after 96 hours 05/17/21 03:00 Blood Culture - Preliminary Blood No Growth after 96 hours
[2021-05-21 11:50] LABS: Glucose,Whole Blood 92 mg/dL (75-99)
[2021-05-21] MEDS: SODIUM CHLORIDE 0.9% 1,000 ML IV SCH (14:07)
--- NOTE | 2021-05-21 14:50 | P.PN ---
Subjective Progress Note Date: 05/21/21 This is a 75-year-old gentleman on admitted with colitis and multiple other medical issues with colonoscopy canceled yesterday secondary to insufficient prep. Nothing by mouth, clear liquid diet recently initiated as per surgery. Patient is rescheduled for colonoscopy on . Maintained on Levaquin and Flagyl. T-max 100.2, WBC decreasing down to 11.9. Denies abdominal pain. Denies abdominal cramping. Continues on IV fluid hydration. Hemoglobin stable, 14. Objective - Vital Signs Vital signs: Vital Signs Temp 97.8 F 05/21/21 10:00 Pulse 70 05/21/21 10:00 Resp 16 05/21/21 10:00 BP 136/72 05/21/21 10:00 Pulse Ox 96 05/21/21 10:00 Intake & Output 05/20/21 05/21/21 05/21/21 18:59 06:59 18:59 Intake Total 236 236 Balance 236 236 Intake: Oral 236 236 Other: Voiding Method Toilet # Voids 3 4 # Bowel Movements 1 - Exam - Exam Gen: well developed male in NAD CV: RRR Lungs: normal effort, clear throughout Abd: soft, nontender, positive bowel sounds - Labs CBC & Chem 7: 05/21/21 08:50 05/20/21 06:13 Labs: Abnormal Lab Results - Last 24 Hours (Table) 05/21/21 Range/Units 08:50 WBC 11.9 H (3.8-10.6) k/uL Neutrophils # 9.0 H (1.3-7.7) k/uL Microbiology - Last 24 Hours (Table) 05/17/21 10:18 Stool Culture - Final Stool 05/17/21 02:45 Blood Culture - Preliminary Blood No Growth after 96 hours 05/17/21 03:00 Blood Culture - Preliminary Blood No Growth after 96 hours Assessment and Plan Assessment: Abdominal pain accompanied by hematochezia, suspect acute colitis, etiology unclear Acute COVID-19 infection Hypertensive urgency Leukocytosis with possible sepsis, present on admission secondary to colitis Elevated lactic acid secondary to sepsis Diabetes mellitus type 2 Gastroesophageal reflux disease Degenerative joint disease Plan: Continue on current medication regime ,monitoring and symptomatic treatment. IV fluid hydration. Colonoscopy . Antibiotic regimen as per ID. The impression and plan of care has been dictated as directed. : I performed a history and examination of this patient, discussed the same with the dictator. I agree with the dictator's note ,documented as a scribe. Any additional findings or plans will be noted.
[2021-05-21 16:59] LABS: Glucose,Whole Blood 112 mg/dL (75-99)
[2021-05-21 20:24] LABS: Glucose,Whole Blood 146 mg/dL (75-99)
[2021-05-21] MEDS: ATORVASTATIN 20 MG TAB PO SCH (20:46)
[2021-05-21] MEDS: INSULIN DETEMIR (LEVEMIR) 100 UNIT/ML SYR SQ SCH (20:46)
--- NOTE | 2021-05-21 22:29 | PN ---
PROGRESS NOTE DATE OF SERVICE: 05/21/2021 REASON FOR FOLLOWUP: 1. Colitis possibly ischemic. 2. Positive Covid test. INTERVAL HISTORY: The patient is afebrile. The patient is currently breathing comfortably on room air. The patient denies having any chest pain, shortness of breath. The patient's abdominal pain has resolved. No further hematochezia. PHYSICAL EXAMINATION: Blood pressure 144/83 with a pulse of 70, temperature 98.1. She is 95% on room air. General description is an elderly male lying in bed in no distress. Respiratory system: Unlabored breathing, decreased intensity of breath sounds. No wheeze. Heart S1, S2. Regular rate and rhythm. Abdomen: Soft. No tenderness. No guarding. No rigidity. Extremities: No edema of the feet. LABS: Hemoglobin is 14, white count 11.9. Blood culture negative. DIAGNOSTIC IMPRESSION AND PLAN: 1. Patient admitted to the hospital with abdominal pain, and hematochezia secondary to possible ischemic colitis in this patient who is clinically responding to the Levaquin and Flagyl to continue transition to oral on discharge. 2. Patient with a positive colitis, but no evidence of any pneumonia. Patient is currently on room air and would not qualify for Remdesivir or steroids. Continue supportive care. MMODL / IJN: [id number] /
[2021-05-22] MEDS: LEVOFLOXACIN 750MG-D5W PMX 750 MG in DEXTROSE/WATER 1 150ML.BAG IVPB SCH (03:34)
[2021-05-22] MEDS: SODIUM CHLORIDE 0.9% 1,000 ML IV SCH ×2 (03:36→18:48)
[2021-05-22] MEDS: metroNIDAZOLE-NS PMX 500 MG in SALINE 1 100ML.BAG IVPB SCH ×3 (05:45→17:47)
[2021-05-22] MEDS: ONDANSETRON 4 MG/2 ML VIAL IVP SCH ×3 (05:45→17:52)
[2021-05-22 07:00] LABS: Glucose,Whole Blood 74 mg/dL (75-99)
[2021-05-22] MEDS ORDERED: LIDOCAINE 1% (10MG/ML) FOR IV START INTRADERMA PRN (07:06)
[2021-05-22] MEDS: INSULIN ASPART (NovoLOG) 100 UNIT/ML VIAL SQ SCH ×4 (08:51→22:01)
[2021-05-22] MEDS: ENOXAPARIN 40 MG/0.4 ML SYRINGE SQ SCH (08:53)
[2021-05-22] MEDS: DICYCLOMINE 10 MG CAP PO SCH ×4 (08:53→21:54)
[2021-05-22] MEDS: amLODIPine 10 MG TAB PO SCH (08:53)
[2021-05-22] MEDS: ASCORBIC ACID 500 MG TAB PO SCH ×2 (08:53→21:54)
[2021-05-22] MEDS: LOSARTAN 50 MG TAB PO SCH (09:00)
[2021-05-22] MEDS ORDERED: PEG 3350-NA SULF,BICARB,CL/KCL 4,000 ML BOTTLE PO ONE (09:00)
[2021-05-22] MEDS: PANTOPRAZOLE 40 MG/10 ML VIAL IVP SCH ×2 (11:10→21:53)
[2021-05-22 11:22] LABS: Glucose,Whole Blood 109 mg/dL (75-99)
[2021-05-22 11:39] LABS: Basophils # (A) 0.05 X 10*3/uL (0.00-0.10); Basophils % (A) 0.4 %; Eosinophils # (A) 0.21 X 10*3/uL (0.04-0.35); Eosinophils % (A) 1.8 %; HCT 42.6 % (39.6-50.0); HGB 14.3 g/dL (13.0-17.0); Lymphocytes # (A) 2.34 X 10*3/uL (0.90-5.00); Lymphocytes % (A) 19.7 %; MCH 30.1 pg (27.0-32.0); MCHC 33.6 g/dL (32.0-37.0); MCV 89.7 fL (80.0-97.0); Mean Platelet Volume 9.5 fL (9.5-12.2); Monocytes # (A) 0.99 X 10*3/uL (0.20-1.00); Monocytes % (A) 8.3 %; Neutrophils # (A) 8.16 X 10*3/uL (1.80-7.70); Neutrophils % (A) 68.8 %; Platelet Count 319 X 10*3/uL (140-440); RBC 4.75 X 10*6/uL (4.40-5.60); WBC 11.87 X 10*3/uL (4.50-10.00)
--- NOTE | 2021-05-22 12:29 | P.PN ---
Subjective Progress Note Date: 05/22/21 CHIEF COMPLAINT: Colitis HISTORY OF PRESENT ILLNESS: Surgical service is following in regards to patient' s colitis and bloody diarrhea. Patient is scheduled for colonoscopy tomorrow. He denies any pain. He is having small bowel movements that are brown. Denies any nausea or vomiting. Afebrile. WBC 11.87 Patient seen and examined with Dr. montes PHYSICAL EXAM: VITAL SIGNS: Reviewed. GENERAL: Well-developed in no acute distress. HEENT: No sclera icterus. Extraocular movements grossly intact. Moist buccal mucosa. Head is atraumatic, normocephalic. ABDOMEN: Soft. Nondistended. NEUROLOGIC: Alert and oriented. Cranial nerves II through XII grossly intact. ASSESSMENT: 1. Colitis with leukocytosis 2. Sepsis 3. COVID-19 positive PLAN: -Patient scheduled for colonoscopy on , 05/23/[address] montes -DenysYTELY prep today -Continue clear liquid diet for today -And by mouth after midnight -Continue antibiotics -Continue IV fluids Physician Bran Mixer note has been reviewed by physician. Signing provider agrees with the documented findings, assessment, and plan of care. Objective - Vital Signs Vital signs: Vital Signs Temp 97.4 F L 05/22/21 09:31 Pulse 69 05/22/21 09:31 Resp 18 05/22/21 09:31 BP 128/63 05/22/21 09:31 Pulse Ox 96 05/22/21 09:31 Intake & Output 05/21/21 05/22/21 05/22/21 18:59 06:59 18:59 Intake Total 236 Balance 236 Intake: Oral 236 Other: Voiding Method Toilet # Voids 3 - Labs CBC & Chem 7: 05/22/21 07:09 05/20/21 06:13 Labs: Abnormal Lab Results - Last 24 Hours (Table) 05/21/21 05/21/21 05/22/21 Range/Units 16:58 20:22 06:58 WBC (4.50-10.00) X 10*3/uL Absolute Nucleated RBC (0.00-0.00) X 10*3/uL Immature Gran # (0.00-0.04) X 10*3/uL Neutrophils # (1.80-7.70) X 10*3/uL NRBC/100 WBC Diff (0.0-0.0) /100 WBCS POC Glucose (mg/dL) 112 H 146 H 74 L (75-99) mg/dL 05/22/21 05/22/21 Range/Units 07:09 11:21 WBC 11.87 H (4.50-10.00) X 10*3/uL Absolute Nucleated RBC 0.02 H (0.00-0.00) X 10*3/uL Immature Gran # 0.12 H (0.00-0.04) X 10*3/uL Neutrophils # 8.16 H (1.80-7.70) X 10*3/uL NRBC/100 WBC Diff 0.2 H (0.0-0.0) /100 WBCS POC Glucose (mg/dL) 109 H (75-99) mg/dL Microbiology - Last 24 Hours (Table) 05/17/21 03:00 Blood Culture - Preliminary Blood No Growth after 120 hours 05/17/21 02:45 Blood Culture - Preliminary Blood No Growth after 120 hours
[2021-05-22 12:34] LABS: African American GFR (CKD) 76.2 (60.0-200.0); Anion Gap 12.6 mmol/L (4.00-12.00); BUN/Creat Ratio 12.91 Ratio (12.00-20.00); Blood Urea Nitrogen 14.2 mg/dL (9.0-27.0); Calcium 8.5 mg/dL (8.7-10.3); Carbon Dioxide 23.4 mmol/L (21.6-31.8); Non-African American GFR(CKD) 65.8 (60.0-200.0); Potassium 3.9 mmol/L (3.5-5.5)
--- NOTE | 2021-05-22 15:25 | P.PN ---
Subjective Progress Note Date: 05/22/21 This is a 75-year-old gentleman on admitted with colitis and multiple other medical issues with colonoscopy canceled yesterday secondary to insufficient prep. Nothing by mouth, clear liquid diet recently initiated as per surgery. Patient is rescheduled for colonoscopy on . Maintained on Levaquin and Flagyl. T-max 100.2, WBC decreasing down to 11.9. Denies abdominal pain. Denies abdominal cramping. Continues on IV fluid hydration. Hemoglobin stable, 14. 05/22/2021 scheduled for colonoscopy tomorrow. Reports no nausea, taste has returned. Denies abdominal pain. Denies bloody stools. Afebrile, WBC 11.87. Denies chest pain, palpitations or shortness of breath. Objective - Vital Signs Vital signs: Vital Signs Temp 97.4 F L 05/22/21 09:31 Pulse 69 05/22/21 09:31 Resp 18 05/22/21 09:31 BP 128/63 05/22/21 09:31 Pulse Ox 96 05/22/21 09:31 Intake & Output 05/21/21 05/22/21 05/22/21 18:59 06:59 18:59 Intake Total 236 Balance 236 Intake: Oral 236 Other: Voiding Method Toilet # Voids 3 - Exam - Exam Gen: well developed male in NAD CV: RRR Lungs: normal effort, clear throughout Abd: soft, nontender, positive bowel sounds - Labs CBC & Chem 7: 05/22/21 07:09 05/22/21 07:09 Labs: Abnormal Lab Results - Last 24 Hours (Table) 05/21/21 05/21/21 05/22/21 Range/Units 16:58 20:22 06:58 WBC (4.50-10.00) X 10*3/uL Absolute Nucleated RBC (0.00-0.00) X 10*3/uL Immature Gran # (0.00-0.04) X 10*3/uL Neutrophils # (1.80-7.70) X 10*3/uL NRBC/100 WBC Diff (0.0-0.0) /100 WBCS Anion Gap (4.00-12.00) mmol/L Glucose (70-110) mg/dL POC Glucose (mg/dL) 112 H 146 H 74 L (75-99) mg/dL Calcium (8.7-10.3) mg/dL 05/22/21 05/22/21 05/22/21 Range/Units 07:09 07:09 11:21 WBC 11.87 H (4.50-10.00) X 10*3/uL Absolute Nucleated RBC 0.02 H (0.00-0.00) X 10*3/uL Immature Gran # 0.12 H (0.00-0.04) X 10*3/uL Neutrophils # 8.16 H (1.80-7.70) X 10*3/uL NRBC/100 WBC Diff 0.2 H (0.0-0.0) /100 WBCS Anion Gap 12.60 H (4.00-12.00) mmol/L Glucose 66 L (70-110) mg/dL POC Glucose (mg/dL) 109 H (75-99) mg/dL Calcium 8.5 L (8.7-10.3) mg/dL Microbiology - Last 24 Hours (Table) 05/17/21 03:00 Blood Culture - Preliminary Blood No Growth after 120 hours 05/17/21 02:45 Blood Culture - Preliminary Blood No Growth after 120 hours Assessment and Plan Assessment: Abdominal pain accompanied by hematochezia, suspect acute colitis, etiology unclear Acute COVID-19 infection Hypertensive urgency Leukocytosis with possible sepsis, present on admission secondary to colitis Elevated lactic acid secondary to sepsis Diabetes mellitus type 2 Gastroesophageal reflux disease Degenerative joint disease Plan: Continue on current medication regime ,monitoring and symptomatic treatment. Maintain IV fluid hydration. Colonoscopy tomorrow. Antibiotic regimen as per ID. The impression and plan of care has been dictated as directed. : I performed a history and examination of this patient, discussed the same with the dictator. I agree with the dictator's note ,documented as a scribe. Any additional findings or plans will be noted.
[2021-05-22 15:44] VITALS: BMI 27.1
[2021-05-22 16:57] LABS: Glucose,Whole Blood 151 mg/dL (75-99)
--- NOTE | 2021-05-22 17:58 | PN ---
PROGRESS NOTE DATE OF SERVICE: 05/22/2021 REASON FOR FOLLOWUP: 1. Colitis, possibly ischemic. 2. Positive COVID test. INTERVAL HISTORY: The patient is afebrile. The patient is breathing comfortably. Denies having any chest pain or shortness of breath or cough. No abdominal pain. He is currently getting prepped for the colonoscopy tomorrow. PHYSICAL EXAMINATION: Blood pressure 122/64 with a pulse of 125, temperature 97.5. He is 97% on room air. General description is an elderly male lying in bed in no distress. RESPIRATORY SYSTEM: Unlabored breathing. Decreased intensity of breath sounds. No wheeze. HEART: S1, S2. Regular rate and rhythm. ABDOMEN: Soft. No tenderness. LABS: Hemoglobin is 14.8, white count 11.7. Creatinine is 1.1. DIAGNOSTIC IMPRESSION AND PLAN: 1. Patient admitted to hospital with abdominal pain, hematochezia secondary to colitis, possible ischemic, covered with Levaquin and Flagyl; to continue. 2. Positive COVID testing, but did not have significant respiratory symptoms, not hypoxic. Treatment is mostly supportive. Continue supportive care. MMODL / IJN: [id number] /
[2021-05-22 20:11] LABS: Glucose,Whole Blood 114 mg/dL (75-99)
[2021-05-22] MEDS: ATORVASTATIN 20 MG TAB PO SCH (21:54)
[2021-05-22] MEDS: INSULIN DETEMIR (LEVEMIR) 100 UNIT/ML SYR SQ SCH (22:01)
[2021-05-23] MEDS: ONDANSETRON 4 MG/2 ML VIAL IVP SCH ×3 (00:54→12:04)
[2021-05-23] MEDS: metroNIDAZOLE-NS PMX 500 MG in SALINE 1 100ML.BAG IVPB SCH ×3 (00:56→13:17)
[2021-05-23] MEDS: LACTATED RINGERS 1,000 ML IV SCH ×2 (02:47→07:34)
[2021-05-23] MEDS: LEVOFLOXACIN 750MG-D5W PMX 750 MG in DEXTROSE/WATER 1 150ML.BAG IVPB SCH (03:20)
[2021-05-23] MEDS: SODIUM CHLORIDE 0.9% 1,000 ML IV SCH (06:46)
[2021-05-23 07:00] LABS: Glucose,Whole Blood 99 mg/dL (75-99)
[2021-05-23] MEDS: INSULIN ASPART (NovoLOG) 100 UNIT/ML VIAL SQ SCH ×2 (07:25→12:04)
[2021-05-23] MEDS: ASCORBIC ACID 500 MG TAB PO SCH (07:26)
[2021-05-23] MEDS: ENOXAPARIN 40 MG/0.4 ML SYRINGE SQ SCH (07:26)
[2021-05-23] MEDS: DICYCLOMINE 10 MG CAP PO SCH ×2 (07:26→12:05)
[2021-05-23] MEDS: PANTOPRAZOLE 40 MG/10 ML VIAL IVP SCH (07:33)
[2021-05-23] MEDS: LOSARTAN 50 MG TAB PO SCH (07:34)
[2021-05-23] MEDS: amLODIPine 10 MG TAB PO SCH (07:34)
[2021-05-23 08:04] LABS: Basophils % (A) 0 %; Eosinophils # (A) 0.2 k/uL (0-0.7); Eosinophils % (A) 2 %; HCT 41.2 % (39.0-53.0); HGB 13.6 gm/dL (13.0-17.5); Lymphocytes # (A) 1.9 k/uL (1.0-4.8); Lymphocytes % (A) 16 %; MCH 30.6 pg (25.0-35.0); MCHC 33.1 g/dL (31.0-37.0); MCV 92.4 fL (80.0-100.0); Monocytes # (A) 0.7 k/uL (0-1.0); Monocytes % (A) 6 %; Neutrophils # (A) 8.9 k/uL (1.3-7.7); Neutrophils % (A) 75 %; Platelet Count 296 k/uL (150-450); RBC 4.46 m/uL (4.30-5.90); RDW 12.9 % (11.5-15.5); WBC 11.8 k/uL (3.8-10.6)
[2021-05-23 08:24] LABS: African American GFR (CKD) 88 (>60 ml/min/1.73 sqM); Anion Gap 9 mmol/L; Blood Urea Nitrogen 15 mg/dL (9-20); Calcium 8.4 mg/dL (8.4-10.2); Carbon Dioxide 23 mmol/L (22-30); Chloride 107 mmol/L (98-107); Glucose 104 mg/dL (74-99); Non-African American GFR(CKD) 76 (>60 ml/min/1.73 sqM); Sodium 139 mmol/L (137-145)
[2021-05-23 11:34] LABS: Glucose,Whole Blood 109 mg/dL (75-99)
[2021-05-23] MEDS ORDERED: PROPOFOL 10 MG/ML 20 ML VIAL IV ONE (12:46)
[2021-05-23] MEDS ORDERED: IV FLUID CONTINUATION 1,000 ML IV ONE ×2 (12:51)
--- NOTE | 2021-05-23 13:02 | P.OP ---
Date of Procedure: 05/23/21 Preoperative Diagnosis: Colitis Postoperative Diagnosis: Colitis left colon extending transverse colon Procedure(s) Performed: Colonoscopy Anesthesia: MAC Surgeon: Itz Stephen Pathology: other (Left colon) Condition: stable Disposition: PACU Description of Procedure: The patient's placed on the endoscopy table lateral position. He received IV sedation. Digital rectal exam was performed which revealed no abnormalities. Flexible colonoscope was then placed patient anus and passed throughout colon. In the left colon extending to the transverse colon significant inflammatory changes seen. There was areas of white plaque. Was biopsied. The scope was not advanced further due to possible risk of injury to the colon. Scope was withdrawn. The latest extended from transverse colon to the descending colon. The sigmoid colon appeared normal. Scope was brought back the rectum and this appeared normal. Scope was brought patient.
--- NOTE | 2021-05-23 13:37 | P.DS ---
Providers Date of admission: 05/17/21 05:05 Expected date of discharge: 05/23/21 Attending physician: Nader Allan MD Consults: 05/17/21 14:58 Consult Physician Routine Consulting Provider: Itz Stephen Consult Reason/Comments: colitis, sepsis Do you want consulting provider notified?: Already Contacted 05/18/21 09:27 Consult Physician Routine Consulting Provider: Rambo Raymond Consult Reason/Comments: covid-19 infection Do you want consulting provider notified?: Yes 05/18/21 15:17 Consult Physician Routine Consulting Provider: Veronica Stephen Consult Reason/Comments: Complicated COVID colitis with sepsis Do you want consulting provider notified?: Yes Primary care physician: Nisa Allan [facility] Course: Final Diagnoses: Abdominal pain accompanied by hematochezia, status post colonoscopy reporting acute colitis left colon extending the transverse colon. Acute COVID-19 infection Hypertensive urgency Leukocytosis with possible sepsis, present on admission secondary to colitis Elevated lactic acid secondary to sepsis Diabetes mellitus type 2 Gastroesophageal reflux disease Degenerative joint disease Hospital course:This is a 75-year-old gentleman on admitted with colitis and multiple other medical issues with colonoscopy canceled yesterday secondary to insufficient prep. Nothing by mouth, clear liquid diet recently initiated as per surgery. Patient is rescheduled for colonoscopy on . Maintained on Levaquin and Flagyl. T-max 100.2, WBC decreasing down to 11.9. Denies abdominal pain. Denies abdominal cramping. Continues on IV fluid hydration. Hemoglobin stable, 14. 05/22/2021 scheduled for colonoscopy tomorrow. Reports no nausea, taste has returned. Denies abdominal pain. Denies bloody stools. Afebrile, WBC 11.87. D enies chest pain, palpitations or shortness of breath. the patient is scheduled for colonoscopy today. Patient will be discharged home today in a stable condition with guarded prognosis, pending colonoscopy results, final DC recommendations and clearance per surgery. return from colonoscopy, tolerated procedure well. Surgery requesting Flagyl 3 times a day 5 days at discharge. The impression and plan of care has been dictated as directed. : I performed a history and examination of this patient, discussed the same with the dictator. I agree with the dictator's note ,documented as a scribe. Any additional findings or plans will be noted. Patient Condition at Discharge: Stable Plan - Discharge Summary Discharge Rx Participant: Yes New Discharge Prescriptions: New Ascorbic Acid [Vitamin C] 500 mg PO BID tab metroNIDAZOLE [Flagyl] 500 mg PO Q8HR #15 tab Continue Losartan [Cozaar] 50 mg PO DAILY Famotidine 40 mg PO HS Dulaglutide [Trulicity] 3 mg SQ TH Atorvastatin [Lipitor] 20 mg PO HS Discharge Medication List Losartan [Cozaar] 50 mg PO DAILY 08/24/15 [History] Famotidine 40 mg PO HS 02/02/20 [History] Atorvastatin [Lipitor] 20 mg PO HS 05/17/21 [History] Dulaglutide [Trulicity] 3 mg SQ TH 05/17/21 [History] Ascorbic Acid [Vitamin C] 500 mg PO BID tab 05/23/21 [Rx] metroNIDAZOLE [Flagyl] 500 mg PO Q8HR #15 tab 05/23/21 [Rx] Follow up Appointment(s)/Referral(s): Nisa Allan DO [Primary Care Provider] - 3 Days Activity/Diet/Wound Care/Special Instructions: antibx as per surgery
[2021-05-23 15:57] VITALS: BP 151/73; PULSE 78; RESP 17; TEMP 97.7
--- NOTE | 2021-05-23 18:08 | PN ---
PROGRESS NOTE DATE OF SERVICE: 05/23/2021 REASON FOR FOLLOW UP: 1. Colitis, likely ischemic. 2. Positive COVID-19 test. INTERVAL HISTORY: The patient is afebrile. The patient is feeling better, breathing comfortably. Patient denies having any chest pain. No shortness of breath or cough. No vomiting. Has some diarrhea. PHYSICAL EXAMINATION: Blood pressure is 151/73 with a pulse of 78, temperature 98. He is 96% on room air. General description is an elderly male up in the bed in no distress. Respiratory system: Unlabored breathing, clear to auscultation anteriorly. Heart S1, S2. Regular rate and rhythm. Abdomen soft, no tenderness. LABS: Hemoglobin 13.1, white count 11.8, creatinine 0.98. DIAGNOSTIC IMPRESSION AND PLAN: 1. Patient admitted to hospital with abdominal pain, hematochezia, likely secondary to ischemic colitis, responding to the Levaquin and Flagyl. Finish therapy with another week to 10 days of oral Levaquin and Flagyl and close outpatient followup. 2. Patient with positive COVID test but no evidence of any COVID pneumonia. Treatment is mostly supportive and should be isolated for about 10 days from initial diagnosis. No need for any specific treatment. MMODL / IJN: [id number] /
== END 2021-05-23 16:05 | disposition home or self-care (01) | DRG 871 ==
LOC: EC 20:35 → 4SSUR 05-17 05:05
PROVIDERS: ADMIT Family Medicine; ATTEND Family Medicine
PROC: 0DBL8ZX Excision of Transverse Colon, Via Natural or Artificial Opening Endoscopic, Diagnostic (ICD-10-PCS; 2021-05-23)
PROC: 0DBM8ZX Excision of Descending Colon, Via Natural or Artificial Opening Endoscopic, Diagnostic (ICD-10-PCS; principal; 2021-05-23 11:40)
DX: A41.89 Other specified sepsis (principal); U07.1 COVID-19; K55.9 Vascular disorder of intestine, unspecified; E87.2 Acidosis; E11.65 Type 2 diabetes mellitus with hyperglycemia; E78.5 Hyperlipidemia, unspecified; Z20.822 Contact with and (suspected) exposure to COVID-19; Z79.84 Long term (current) use of oral hypoglycemic drugs; Z88.0 Allergy status to penicillin; M19.90 Unspecified osteoarthritis, unspecified site; K21.9 Gastro-esophageal reflux disease without esophagitis; I16.0 Hypertensive urgency; I10 Essential (primary) hypertension; Z79.899 Other long term (current) drug therapy; K64.9 Unspecified hemorrhoids; Z85.820 Personal history of malignant melanoma of skin; K57.30 Diverticulosis of large intestine without perforation or abscess without bleeding; K44.9 Diaphragmatic hernia without obstruction or gangrene; R79.89 Other specified abnormal findings of blood chemistry
CPT/HCPCS: 36415; 45380; 71045; 71275; 74022; 74177; 80048; 80053; 81003; 83605; 83615; 83630; 83690; 85025; 85027; 85379; 85610; 85652; 85730; 86140; 87040; 87045; 87046; 87324; 87635; 93005; 96361; 96374; 96375; 99285

== ENCOUNTER → 2021-12-25 | Outpatient (CLI) | payer MEDICARE ==
--- NOTE | 2021-12-25 14:01 | CA ---
Exercise Stress Test Report Name: Donovan Maher Exam Date: 12/25/2021 10:11 Exam Location: [facility] Ht (in): 72 Wt (lb): 187 BSA: 2.07 Ordering Phys: Nisa Allan DO Referring Phys: Lacy Shaw PAC Technologist: Radha Orellana Age: 76 Gender: M : 1945 Procedure CPT: Indications: R42 Dizziness ICD-10 Codes: Patient History: DIZZINESS Medications: DULOXETINE, ATORVASTATIN, LOSARTAN, FAMOTIDINE, ASPIRIN, TRULICITY Meds past 24 hrs: Pretest Chest Pain: STRESS TEST Protocol Exercise Duration (min:sec): 12:[address] Depressions (mm): Angina Score: Louis Score: Resting HR (bpm): 76 Peak HR (bpm): 148 Resting BP (mmHg): 121 / 65 Peak BP (mmHg): 204 / 82 MPHR: 145 Target HR: 123 % MPHR: 102 METS: 12.1 Total Dose: Peak Dose: Atropine: Double Product: 74892 BP Response: Stress Termination: TARGET HR REACHED/MAX EXERTION Stress Symptoms: NO SYMPTOMS Stress Summary: ECG ANALYSIS Resting ECG: Stress ECG: CONCLUSIONS Good exercise tolerance Normal EKG and response to exercise Dr. Jose Padgett MD (Electronically Signed) Final Date: 25 Dec 2021 14:00
--- NOTE | 2021-12-25 16:32 | NM ---
EXAMINATION TYPE: NM stress cardiolite complete DATE OF EXAM: 12/25/2021 COMPARISON: NONE HISTORY: Dizziness TECHNIQUE: After the intravenous administration of 10.0 mCi Tc 99m Sestamibi - Rest images obtained 45 minutes post injection. The patient exercised using a RODOLFO protocol and 1 minute prior to peak exercise was injected with 24.8 mCi Tc 99m Sestamibi - Stress images obtained 15 minutes post injecti on. FINDINGS: Targeted heart rate was achieved during performance of the study. Review of stress and rest SPECT viktoriya ges demonstrates no distinct perfusion abnormality. Some artifact along the inferior wall appears to be present. Gated analysis shows normal wall motion with an estimated left ventricular ejection frac tion of 52 %. IMPRESSION: No stress-induced ischemic change.
== END | disposition home or self-care (01) ==
LOC: RADNMMAIN 08:19
PROVIDERS: ATTEND Family Medicine
DX: R42 Dizziness and giddiness (principal)
CPT/HCPCS: 93017; 78452; A9500

== ENCOUNTER → 2022-07-09 | Outpatient (CLI) | payer MEDICARE ==
[2022-07-09 17:43] LABS: ALT 22 U/L (10-49); AST 18 U/L (14-35); African American GFR (CKD) 73.3 (60.0-200.0); Albumin 4.6 g/dL (3.8-4.9); Albumin/Globulin Ratio 1.96 (1.60-3.17); Alkaline Phosphatase 110 U/L (41-126); BUN/Creat Ratio 16.55 Ratio (12.00-20.00); Blood Urea Nitrogen 18.7 mg/dL (9.0-27.0); Carbon Dioxide 27.2 mmol/L (20.0-27.5); Chloride 103 mmol/L (96-109); Chol/HDL Ratio 2.82 Ratio; Globulin 2.3 g/dL (1.6-3.3); Glucose 136 mg/dL (70-110); LDL Cholesterol,Calculated 95.6 mg/dL (0.0-131.0); Non-African American GFR(CKD) 63.2 (60.0-200.0); Potassium 5.3 mmol/L (3.5-5.5); Sodium 141 mmol/L (135-145); Total Protein 6.9 g/dL (6.2-8.2)
[2022-07-09 19:52] LABS: Microalbumin Creatinine Ratio <30 mg/g Creat (0-30)
== END | disposition home or self-care (01) ==
LOC: LABWHC1 09:22
PROVIDERS: ATTEND Internal Medicine Endocrinology, Diabetes & Metabolism
DX: E11.65 Type 2 diabetes mellitus with hyperglycemia (principal)
CPT/HCPCS: 36415; 80053; 80061; 82043; 82570; 83036; 84443

== ENCOUNTER → 2023-09-08 | Outpatient (CLI) | payer MEDICARE ==
[2023-09-08 11:16] LABS: Microalbumin Creatinine Ratio <10 mg/g Cr (0-30)
[2023-09-08 11:25] LABS: ALT 26 U/L (10-49); AST 19 U/L (14-35); Albumin 4.2 g/dL (3.8-4.9); Albumin/Globulin Ratio 1.83 Ratio (1.60-3.17); Alkaline Phosphatase 100 U/L (41-126); BUN/Creat Ratio 15.46 Ratio (12.00-20.00); Blood Urea Nitrogen 20.1 mg/dL (9.0-27.0); Calcium 9.4 mg/dL (8.7-10.3); Carbon Dioxide 27.3 mmol/L (21.6-31.8); Chloride 105 mmol/L (96-109); Chol/HDL Ratio 3.22 Ratio; Globulin 2.3 g/dL (1.6-3.3); Glucose 103 mg/dL (70-110); Potassium 4.5 mmol/L (3.5-5.5); Sodium 143 mmol/L (135-145); Total Bilirubin 0.4 mg/dL (0.3-1.2); Total Protein 6.5 g/dL (6.2-8.2)
== END | disposition home or self-care (01) ==
LOC: LABWHC1 06:48
PROVIDERS: ATTEND Internal Medicine Endocrinology, Diabetes & Metabolism
DX: E11.65 Type 2 diabetes mellitus with hyperglycemia (principal)
CPT/HCPCS: 36415; 80053; 80061; 82043; 82570; 83036; 84443

== ENCOUNTER → 2023-12-05 | Outpatient (CLI) | payer MEDICARE ==
[2023-12-05 13:37] LABS: ALT 23 U/L (10-49); AST 23 U/L (14-35); Albumin 4.3 g/dL (3.8-4.9); Albumin/Globulin Ratio 1.79 Ratio (1.60-3.17); Alkaline Phosphatase 117 U/L (41-126); BUN/Creat Ratio 15.75 Ratio (12.00-20.00); Blood Urea Nitrogen 18.9 mg/dL (9.0-27.0); Calcium 9.4 mg/dL (8.7-10.3); Carbon Dioxide 25.1 mmol/L (21.6-31.8); Chloride 103 mmol/L (96-109); Chol/HDL Ratio 2.95 Ratio; Globulin 2.4 g/dL (1.6-3.3); Glucose 205 mg/dL (70-110); LDL Cholesterol,Calculated 82.7 mg/dL (0.0-131.0); Sodium 141 mmol/L (135-145); Total Bilirubin 0.7 mg/dL (0.3-1.2); Total Protein 6.7 g/dL (6.2-8.2)
[2023-12-05 23:12] LABS: Microalbumin Creatinine Ratio <7 mg/g Cr (0-30)
== END | disposition home or self-care (01) ==
LOC: LABWHC1 08:08
PROVIDERS: ATTEND Internal Medicine Endocrinology, Diabetes & Metabolism
DX: E11.65 Type 2 diabetes mellitus with hyperglycemia (principal)
CPT/HCPCS: 36415; 80053; 80061; 82043; 82570; 83036; 84443

== ENCOUNTER → 2024-04-26 | Outpatient (CLI) | payer MEDICARE ==
[2024-04-26 11:17] LABS: ALT 19 U/L (10-49); AST 20 U/L (14-35); Albumin 4.3 g/dL (3.8-4.9); Albumin/Globulin Ratio 1.79 Ratio (1.60-3.17); Alkaline Phosphatase 129 U/L (41-126); BUN/Creat Ratio 12.07 Ratio (12.00-20.00); Blood Urea Nitrogen 16.9 mg/dL (9.0-27.0); Calcium 9.6 mg/dL (8.7-10.3); Carbon Dioxide 26.2 mmol/L (21.6-31.8); Chloride 104 mmol/L (96-109); Chol/HDL Ratio 3.14 Ratio; Globulin 2.4 g/dL (1.6-3.3); Glucose 171 mg/dL (70-110); LDL Cholesterol,Calculated 60.3 mg/dL (0.0-131.0); Potassium 4.7 mmol/L (3.5-5.5); Sodium 141 mmol/L (135-145); Total Bilirubin 0.7 mg/dL (0.3-1.2); Total Protein 6.7 g/dL (6.2-8.2)
== END | disposition home or self-care (01) ==
LOC: LABWHC1 07:08
PROVIDERS: ATTEND Internal Medicine Endocrinology, Diabetes & Metabolism
DX: E11.65 Type 2 diabetes mellitus with hyperglycemia (principal)
CPT/HCPCS: 36415; 80053; 80061; 82043; 82570; 83036; 84443

== ENCOUNTER → 2024-08-02 | Outpatient (CLI) | payer MEDICARE ==
[2024-08-02 10:25] LABS: Microalbumin Creatinine Ratio <9 mg/g Cr (0-30)
[2024-08-02 10:31] LABS: ALT 15 U/L (10-49); AST 18 U/L (14-35); Albumin 4.2 g/dL (3.8-4.9); Albumin/Globulin Ratio 1.68 Ratio (1.60-3.17); Alkaline Phosphatase 116 U/L (41-126); Blood Urea Nitrogen 16.5 mg/dL (9.0-27.0); Calcium 9.3 mg/dL (8.7-10.3); Carbon Dioxide 26.6 mmol/L (21.6-31.8); Chloride 104 mmol/L (96-109); Chol/HDL Ratio 2.71 Ratio; Globulin 2.5 g/dL (1.6-3.3); Glucose 169 mg/dL (70-110); LDL Cholesterol,Calculated 83.6 mg/dL (0.0-131.0); Potassium 4.3 mmol/L (3.5-5.5); Sodium 142 mmol/L (135-145); Total Bilirubin 0.6 mg/dL (0.3-1.2); Total Protein 6.7 g/dL (6.2-8.2); VLDL Calculation 14.34 mg/dL (5.00-40.00)
== END | disposition home or self-care (01) ==
LOC: LABWHC1 07:16
PROVIDERS: ATTEND Internal Medicine Endocrinology, Diabetes & Metabolism
DX: E11.65 Type 2 diabetes mellitus with hyperglycemia (principal)
CPT/HCPCS: 36415; 80053; 80061; 82043; 82570; 83036; 84443

== ENCOUNTER → 2024-11-23 | Outpatient (CLI) | payer MEDICARE ==
[2024-11-23 10:45] LABS: Chol/HDL Ratio 2.77 Ratio; LDL Cholesterol,Calculated 74.2 mg/dL (0.0-131.0); VLDL Calculation 19.68 mg/dL (5.00-40.00)
[2024-11-23 10:46] LABS: ALT 20 U/L (10-49); AST 20 U/L (14-35); Albumin 4.2 g/dL (3.8-4.9); Albumin/Globulin Ratio 1.75 Ratio (1.60-3.17); Alkaline Phosphatase 151 U/L (41-126); BUN/Creat Ratio 18.09 Ratio (12.00-20.00); Blood Urea Nitrogen 19.9 mg/dL (9.0-27.0); Calcium 9.5 mg/dL (8.7-10.3); Carbon Dioxide 26.6 mmol/L (21.6-31.8); Chloride 101 mmol/L (96-109); Globulin 2.4 g/dL (1.6-3.3); Glucose 186 mg/dL (70-110); Potassium 4.4 mmol/L (3.5-5.5); Sodium 137 mmol/L (135-145); Total Bilirubin 0.7 mg/dL (0.3-1.2); Total Protein 6.6 g/dL (6.2-8.2)
[2024-11-23 11:05] LABS: Microalbumin Creatinine Ratio <9 mg/g Cr (0-30)
== END | disposition home or self-care (01) ==
LOC: LABWHC1 07:35
PROVIDERS: ATTEND Internal Medicine Endocrinology, Diabetes & Metabolism
DX: E11.65 Type 2 diabetes mellitus with hyperglycemia (principal)
CPT/HCPCS: 36415; 80053; 80061; 82043; 82570; 83036; 84443